=== PATIENT | male | born 1995 | race Two or more races ===

== ENCOUNTER 2025-03-09 03:41 | Inpatient (IN) ==
--- NOTE | 2025-03-09 04:02 | Emergency Department Note ---
Impression & Plan Small bowel obstruction patient will be evaluated by the general surgery team. ED Provider Note NAME: AFSANEH FRAIRE AGE: 29 SEX: Male INFORMANT: Patient ED PROVIDER(S): Sonal Baker DO CHIEF COMPLAINT: shortness of breath PLAN: Disposition: The patient will be evaluated by general surgery MEDICAL DECISION MAKING: This is a 29-year-old male patient who underwent laparoscopy appendectomy on March 06. he describes a normal surgery and postoperative course. He was started on Augmentin. Laboratory studies revealed a white blood cell count of 15.0 and H&H were negative. Lactate was 1.9. D-dimer was significantly elevated at 6219. Patient was medicated with IV Zofran and IV Dilaudid for his pain. He went for CT scan of the abdomen/pelvis along with CT scan of the chest because of the tachypnea and D-dimer elevation. This revealed no evidence of PE but there were significantly dilated loops of small bowel concerning for bowel obstruction. NG tube was placed. Patient is feeling more comfortable at this time. he will be evaluated by the general surgery team. Care/management discussed with: General surgery PA Triage Nursing notes: reviewed and agree with them. Vital Signs: reviewed and unremarkable Additional History obtained from: patient significant other who is at the bedside Differential Diagnosis: perforated bowel, small bowel obstruction, postsurgical complication, colitis Diagnostics, independently interpreted by me: ECG: normal sinus rhythm at a rate of [address] segment elevation or signs of ischemia. There is no ectopy. Cardiac Monitoring: Normal sinus rhythm at a rate of 67 Imaging studies: CTA of the chest: As per Imbro CT scan of the abdomen/pelvis: As per Imbro HPI: 29 year old Male arrives for evaluation of right lower quadrant abdominal pain and shortness of breath. patient underwent laparoscopic appendectomy on March 06 at [facility]. Patient describes a normal post surgical course. He was started on Augmentin upon discharge to home. Patient states he was starting to feel better at home when he suddenly developed moderate abdominal pain and shortness of breath tonight. PAST MEDICAL HISTORY: None, PAST SURGICAL HISTORY: laparoscopic appendectomy SOCIAL HISTORY: patient does not currently smoke. He lives with his significant other. 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 HOME MEDICATIONS: Augmentin ALLERGIES: none VITALS: See Below PHYSICAL EXAMINATION: HEENT: Head - normocephalic and atraumatic Pupils are equal, round, and reactive to light. Extraocular eye muscles are intact, and sclera are anicteric. Nose - moist nasal mucosa without discharge. Mouth - moist buccal mucosa. Oropharynx is nonerythematous and there is no tonsillar exudate or edema noted. Neck: Supple; no JVD, nuchal rigidity, cervical lymphadenopathy, or auscultated bruits. Heart: Regular rate and rhythm. There is a normal S1 and S2 with no murmurs, clicks, or gallops appreciated. Lungs: Clear to auscultation bilaterally with no wheezes, rales, or rhonchi. Abdomen: Soft, Exquisitely tender with even light palpation. There is rigidity, rebound and guarding noted. Extremities: No evidence of cyanosis, clubbing, or edema. There are easily palpable peripheral pulses. Skin: warm and dry with good turgor and no rashes. 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 A complete history and physical was performed. An order was placed for continuous cardiac monitoring. The patient was in a normal sinus rhythm at a rate of 67. Twelve- lead EKG was obtained as described above. The patient was medicated with IV Dilaudid and IV Zofran. He was bolused with normal saline and started on normal saline drip while kept NPO. Patient went for CT scan of the chest and abdomen. CTA of the chest was negative. CT scan of the abdomen showed evidence of multiple dilated loops of bowel concerning for bowel obstruction. I discussed the case with the general surgery team and they will evaluate for further management. Past Med/Surg History Problem List (Updated 03/09/25 @ 07:12 by Jessica Kim DO) Small bowel obstruction, partial Social History Smoking Status: Former smoker Preferred Language: Samoan Feels Safe at Home: Yes Results & Data (ED) Vital Signs Vital Signs - 24 hr 03/09/25 03:48 03/09/25 04:00 03/09/25 04:00 Temperature 36.3 C L Temperature Source Oral Pulse Rate 69 Pulse Rate [Apical] 67 Pulse Rate from SpO2 Sensor Pulse Rhythm Regular Pulse Rhythm [Apical] Regular Pulse Strength Normal Respiratory Rate 18 25 H Respiratory Effort / Characteristics Non-Labored Spontaneous Labored Respiratory Depth Normal Respiratory Pattern Regular Blood Pressure 119/83 Blood Pressure [Left Arm] 118/87 Blood Pressure Mean 95 Blood Pressure Mean [Left Arm] 97 Blood Pressure Position Sitting Blood Pressure Position [Left Arm] Pulse Oximetry 97 99 99 Oxygen Delivery Method Room Air Room Air Room Air Oxygen Flow Rate Sepsis Recent Fever Within 48 Hours No Sepsis New/Unexplained Change in Mental Status N/A Sepsis Action Taken by Nursing No Action Required Oxygen Flow Rate - Titration Pulse Oximetry Post Tiitration 03/09/25 04:13 03/09/25 04:15 03/09/25 04:30 Temperature Temperature Source Pulse Rate 71 Pulse Rate [Apical] 77 69 Pulse Rate from SpO2 Sensor Pulse Rhythm Pulse Rhythm [Apical] Pulse Strength Respiratory Rate 25 H 20 Respiratory Effort / Characteristics Non-Labored Spontaneous Respiratory Depth Normal Respiratory Pattern Regular Blood Pressure Blood Pressure [Left Arm] 124/82 118/76 Blood Pressure Mean Blood Pressure Mean [Left Arm] 96 90 Blood Pressure Position Blood Pressure Position [Left Arm] Semi-fowlers Pulse Oximetry 95 100 Oxygen Delivery Method Room Air Nasal Cannula Oxygen Flow Rate 2 Sepsis Recent Fever Within 48 Hours Sepsis New/Unexplained Change in Mental Status Sepsis Action Taken by Nursing Oxygen Flow Rate - Titration Pulse Oximetry Post Tiitration 03/09/25 04:38 03/09/25 04:45 03/09/25 05:15 Temperature Temperature Source Pulse Rate Pulse Rate [Apical] 74 80 Pulse Rate from SpO2 Sensor Pulse Rhythm Pulse Rhythm [Apical] Pulse Strength Respiratory Rate 22 16 Respiratory Effort / Characteristics Respiratory Depth Respiratory Pattern Blood Pressure Blood Pressure [Left Arm] 125/76 133/74 Blood Pressure Mean Blood Pressure Mean [Left Arm] 92 93 Blood Pressure Position Blood Pressure Position [Left Arm] Pulse Oximetry 80 L 94 100 Oxygen Delivery Method Nasal Cannula Room Air Nasal Cannula Oxygen Flow Rate 0 2 Sepsis Recent Fever Within 48 Hours Sepsis New/Unexplained Change in Mental Status Sepsis Action Taken by Nursing Oxygen Flow Rate - Titration 2 Pulse Oximetry Post Tiitration 100 03/09/25 05:30 03/09/25 05:45 03/09/25 06:00 Temperature Temperature Source Pulse Rate 64 60 60 Pulse Rate [Apical] Pulse Rate from SpO2 Sensor Pulse Rhythm Pulse Rhythm [Apical] Pulse Strength Respiratory Rate 21 18 12 Respiratory Effort / Characteristics Respiratory Depth Respiratory Pattern Blood Pressure 124/73 119/74 120/78 Blood Pressure [Left Arm] Blood Pressure Mean 98 90 97 Blood Pressure Mean [Left Arm] Blood Pressure Position Blood Pressure Position [Left Arm] Pulse Oximetry 100 100 99 Oxygen Delivery Method Oxygen Flow Rate Sepsis Recent Fever Within 48 Hours Sepsis New/Unexplained Change in Mental Status Sepsis Action Taken by Nursing Oxygen Flow Rate - Titration Pulse Oximetry Post Tiitration 03/09/25 06:15 03/09/25 06:45 03/09/25 06:57 Temperature Temperature Source Pulse Rate 62 75 Pulse Rate [Apical] Pulse Rate from SpO2 Sensor 75 Pulse Rhythm Pulse Rhythm [Apical] Pulse Strength Respiratory Rate 14 15 Respiratory Effort / Characteristics Respiratory Depth Respiratory Pattern Blood Pressure 118/74 146/81 H Blood Pressure [Left Arm] Blood Pressure Mean 90 106 Blood Pressure Mean [Left Arm] Blood Pressure Position Blood Pressure Position [Left Arm] Pulse Oximetry 99 96 Oxygen Delivery Method Oxygen Flow Rate Sepsis Recent Fever Within 48 Hours Sepsis New/Unexplained Change in Mental Status Sepsis Action Taken by Nursing Oxygen Flow Rate - Titration Pulse Oximetry Post Tiitration Laboratory Data 03/09/25 04:05 03/09/25 05:01 Lab Results 03/09/25 03/09/25 Range/Units 04:05 05:01 WBC 15.08 H (4.8-10.8) K/ul RBC 5.47 (4.70-6.10) M/uL Hgb 15.8 (14.0-18.0) g/dl Hct 46.9 (42.0-52.0) % MCV 85.7 (80.0-100.0) fL MCH 28.9 (25.0-34.0) pg MCHC 33.7 (32.0-36.0) g/dL RDW Std Deviation 38.1 (36.4-46.3) fL RDW Coeff of Renetta 12.2 (11.5-14.5) % Plt Count 378 (130-400) K/uL MPV 9.7 (9.4-12.4) fL Immature Gran % (Auto) 0.4 % Neut % (Auto) 84.7 % Lymph % (Auto) 7.3 % Runnels % (Auto) 7.2 % Eos % (Auto) 0.1 % Baso % (Auto) 0.3 % Neut # (Auto) 12.78 H (1.40-6.50) K/uL Lymph # (Auto) 1.10 L (1.20-3.40) K/uL Runnels # (Auto) 1.09 H (0.11-0.59) K/uL Eos # (Auto) 0.01 (0.00-0.50) K/uL Baso # (Auto) 0.04 (0.00-0.20) K/uL Immature Gran # (Auto) 0.06 (0.01-0.20) K/uL D-Dimer 6210 H* (0-500) ug/L FEU Sodium 134 L (136-145) mmol/L Potassium TNP 4.3 Chloride 100 (98-107) mmol/L Carbon Dioxide 26 (21-32) mmol/L Anion Gap 8 (3-11) BUN 18 (6-23) mg/dl Creatinine 1.05 (0.6-1.4) mg/dl Est Cr Clr Drug Dosing 92.4 ml/min eGFR 97.93 BUN/Creatinine Ratio 17.1 (10-20) Glucose 111 H (70-99(Fasting)) mg/dl Lactate 1.9 (0.4-2.0) mmol/L Calcium 10.2 (8.6-10.3) mg/dl Magnesium 2.3 (1.7-2.4) mg/dl Total Bilirubin 1.0 (0.2-1.0) mg/dl Direct Bilirubin TNP 0.1 AST TNP 11 L ALT 16 (7-52) U/L Alkaline Phosphatase 55 (34-104) U/L Troponin I High Sens 5.2 (0-20) pg/ml Total Protein 8.3 (6.0-8.3) gm/dl Albumin 4.6 (3.4-5.0) gm/dl Procalcitonin 0.24 (0-0.5) ng/ml Administered Medications Discontinued Medications Hydromorphone HCl (Hydromorphone Inj 0.5 Mg/0.5 Ml Syr) 0.5 mg IV NOW STA Stop: 03/09/25 04:22 Last Admin: 03/09/25 04:28 Dose: 0.5 mg Documented By: JEFRY Sodium Chloride (Nss) 1,000 mls @ 999 mls/hr IV .Q1H1M ONE Stop: 03/09/25 05:21 Last Infusion: 03/09/25 05:40 Dose: Infused Documented By: Admin: 03/09/25 04:28 Dose: 999 mls/hr Documented By: JEFRY Ioversol (Optiray 320 125ml) 119 ml IV ONCE ONE Stop: 03/09/25 05:08 Last Admin: 03/09/25 05:10 Dose: 119 ml Documented By: AMMY Ondansetron HCl (Ondansetron Inj 2 Mg/Ml 2 Ml Vial) 4 mg IV NOW STA Stop: 03/09/25 04:22 Last Admin: 03/09/25 04:28 Dose: 4 mg Documented By: EMB Imaging Data Radiologist's Impression: Chest X-Ray 03/09/25 03:58 EXAM: XR chest 1V portable CLINICAL HISTORY: Sepsis TECHNIQUE: An X-ray image of the chest was obtained in the AP projection. COMPARISON: No prior studies are available for comparison. FINDINGS: Pulmonary Parenchyma: The lungs are clear bilaterally. There is no evidence of consolidation, collapse, or focal opacities. No pulmonary nodules are identified. There is no evidence of pleural effusion or pleural thickening. Heart and Mediastinum: The heart size and shape are normal. There is no mediastinal widening or masses. No hilar or mediastinal lymphadenopathy is present. Bony Thorax: The bony thorax appears intact without fractures or deformities. Soft Tissues: The soft tissues overlying the chest wall are unremarkable. IMPRESSION: Normal chest X-ray. No acute cardiopulmonary abnormalities are identified. Electronically signed by Danis Cabrera 03-09-2025 05:19 AM Abdomen/Pelvis CT 03/09/25 04:21 EXAM: CT abd pelvis IV con only CLINICAL HISTORY: eval for sbo TECHNIQUE: Contiguous axial images were obtained from the level of the diaphragm to the pubic symphysis with intravenous contrast. Coronal and sagittal reconstructions were likewise performed and indicated to increase the sensitivity for detecting clinically relevant pathology. If IV contrast material had not been administered, the likelihood of detecting abnormalities relevant to the patient's condition would have been substantially decreased. The CT scan was performed according to ALARA (as low as reasonably achievable). COMPARISON: None. FINDINGS: The visualized lower chest shows mild bilateral pleural effusion. The liver is normal in size and attenuation. No focal liver lesions are seen. There is no intra- or extrahepatic biliary ductal dilatation. Hepatic vasculature is patent. The gallbladder is present. The spleen, pancreas, and adrenal glands are unremarkable. The kidneys are normal in size and attenuation. There is no hydronephrosis or perinephric fat stranding. No renal calculi or renal masses are identified. The ureters are normal in caliber and no ureteral calculi are seen. The bladder is normal in contour. Pelvic viscera are unremarkable. Evidence of multiple dilated small bowel loops (suggestive of small bowel obstruction) is noted in the mid and lower quadrants of the abdomen (maximum diameter measures approximately 3.2 cm), with moderately thickened and inflamed Ileal loops noted in the right lower quadrant up to the ileocecal junction. Moderate adjacent fat stranding and interbowel adhesion are present. No imaging evidence of appendicitis. Minimal ascites seen. Few air foci seen in left preperitoneal space near deep inguinal ring and in right inguinal region subcutaneous space. Abdominal and pelvic vasculature is patent. No adenopathy or fluid collections are seen. No aggressive appearing osseous lesions are identified. IMPRESSION: 1. Evidence of multiple dilated small bowel loops (suggestive of small bowel obstruction) is noted in the mid and lower quadrants of the abdomen (maximum diameter measures approximately 3.2 cm), with moderately thickened and inflamed ileal loops are noted in the right lower quadrant up to the ileocecal junction. Moderate adjacent fat stranding and interbowel adhesion are present. Possibility of inflammatory etiology/stricture. 2. Few air foci seen in left preperitoneal space near deep inguinal ring and in right inguinal region subcutaneous space. Could be post op. Advised clinical correlation and follow up to rule out bowel perforation. Electronically signed by Danis Cabrera 03-09-2025 06:21 AM Chest CTA 03/09/25 05:00 EXAM: CT angio chest PE protocol CLINICAL HISTORY: PE TECHNIQUE: Contiguous axial images were obtained from the base of the neck through the upper abdomen following intravenous administration of iodinated contrast material. Angiographic images were processed, and 3D MIP images were acquired for interpretation. If IV contrast material had not been administered, the likelihood of detecting abnormalities relevant to the patient's condition would have been substantially decreased. Coronal and sagittal 3D MIPs were likewise performed and indicated to increase the sensitivity of detecting diffuse clinically relevant pathology. The CT scan was performed according to ALARA (as low as reasonably achievable). COMPARISON: None. FINDINGS: Mild bilateral pleural effusions with basal subsegmental collapse of both lower lobes are seen. Adequate contrast bolus without evidence of pulmonary embolism. The central airways are patent. The lungs are clear. The heart, aorta, and pulmonary arteries are of normal size and configuration. There are no appreciable coronary artery or aortic atherosclerotic calcifications. No pericardial effusion is identified. The thyroid is unremarkable. No mediastinal, hilar, or axillary lymphadenopathy is noted. No suspicious lytic or sclerotic osseous lesions are identified. IMPRESSION: 1. No evidence of pulmonary embolism. Mild bilateral pleural effusions with basal subsegmental collapse of both lower lobes are seen. Electronically signed by Danis Cabrera 03-09-2025 06:15 AM Discharge Plan Visit Data Chief Complaint: Abdominal Pain Stated Complaint: BLOATING, SOB, ABD PAIN, APPENDICTOMY 03/06 ED Provider: Sonal Baker Discharge Problem: Small bowel obstruction Condition: Serious Forms Stand Alone Forms: [facility] Referrals Referrals: PCP,NO [Primary Care Provider] -
[2025-03-09 04:19] LABS: Hematocrit (blood only) 46.9 % (42.0-52.0); Hemoglobin 15.8 g/dl (14.0-18.0); Immature Granulocytes # (auto) 0.06 K/uL (0.01-0.20); Immature Granulocytes % (auto) 0.4 %; Mean Corpuscular Hemoglobin 28.9 pg (25.0-34.0); Mean Corpuscular Volume 85.7 fL (80.0-100.0); Platelet Count 378 K/uL (130-400); RDW Standard Deviation 38.1 fL (36.4-46.3); Red Blood Count 5.47 M/uL (4.70-6.10); White Blood Count 15.08 K/ul (4.8-10.8)
[2025-03-09] MEDS: ONDANSETRON INJ 2 MG/ML 2 ML VIAL IV STA (04:28)
[2025-03-09] MEDS: HYDROmorphone INJ 0.5 MG/0.5 ML SYR IV STA ×2 (04:28→19:52)
[2025-03-09] MEDS: SODIUM CHLORIDE 0.9% 1,000 ML IV ONE (04:28)
[2025-03-09 04:54] LABS: Alanine Aminotransferase 16 U/L (7-52); Albumin Level 4.6 gm/dl (3.4-5.0); Alkaline Phosphatase 55 U/L (34-104); Anion Gap 8 (3-11); Bilirubin,Total 1.0 mg/dl (0.2-1.0); Blood Urea Nitrogen 18 mg/dl (6-23); Calcium 10.2 mg/dl (8.6-10.3); Carbon Dioxide 26 mmol/L (21-32); Chloride 100 mmol/L (98-107); Creatinine Clr Calc Pharmacy 92.4 ml/min; Glucose 111 mg/dl (70-99(Fasting)); Magnesium 2.3 mg/dl (1.7-2.4); Sodium 134 mmol/L (136-145); Total Protein 8.3 gm/dl (6.0-8.3)
[2025-03-09] MEDS: OPTIRAY 320 125ml IV ONE (05:10)
--- NOTE | 2025-03-09 05:20 | XRay Report ---
EXAM: XR chest 1V portable CLINICAL HISTORY: Sepsis TECHNIQUE: An X-ray image of the chest was obtained in the AP projection. COMPARISON: No prior studies are available for comparison. FINDINGS: Pulmonary Parenchyma: The lungs are clear bilaterally. There is no evidence of consolidation, collapse, or focal opacities. No pulmonary nodules are identified. There is no evidence of pleural effusion or pleural thickening. Heart and Mediastinum: The heart size and shape are normal. There is no mediastinal widening or masses. No hilar or mediastinal lymphadenopathy is present. Bony Thorax: The bony thorax appears intact without fractures or deformities. Soft Tissues: The soft tissues overlying the chest wall are unremarkable. IMPRESSION: Normal chest X-ray. No acute cardiopulmonary abnormalities are identified. Electronically signed by Danis Cabrera 03-09-2025 05:19 AM
[2025-03-09 05:27] LABS: Potassium 4.3 mmol/L (3.5-5.1)
--- NOTE | 2025-03-09 06:15 | CT Scan Report ---
EXAM: CT angio chest PE protocol CLINICAL HISTORY: PE TECHNIQUE: Contiguous axial images were obtained from the base of the neck through the upper abdomen following intravenous administration of iodinated contrast material. Angiographic images were processed, and 3D MIP images were acquired for interpretation. If IV contrast material had not been administered, the likelihood of detecting abnormalities relevant to the patient's condition would have been substantially decreased. Coronal and sagittal 3D MIPs were likewise performed and indicated to increase the sensitivity of detecting diffuse clinically relevant pathology. The CT scan was performed according to ALARA (as low as reasonably achievable). COMPARISON: None. FINDINGS: Mild bilateral pleural effusions with basal subsegmental collapse of both lower lobes are seen. Adequate contrast bolus without evidence of pulmonary embolism. The central airways are patent. The lungs are clear. The heart, aorta, and pulmonary arteries are of normal size and configuration. There are no appreciable coronary artery or aortic atherosclerotic calcifications. No pericardial effusion is identified. The thyroid is unremarkable. No mediastinal, hilar, or axillary lymphadenopathy is noted. No suspicious lytic or sclerotic osseous lesions are identified. IMPRESSION: 1. No evidence of pulmonary embolism. Mild bilateral pleural effusions with basal subsegmental collapse of both lower lobes are seen. Electronically signed by Danis Cabrera 03-09-2025 06:15 AM
--- NOTE | 2025-03-09 06:22 | CT Scan Report ---
EXAM: CT abd pelvis IV con only CLINICAL HISTORY: eval for sbo TECHNIQUE: Contiguous axial images were obtained from the level of the diaphragm to the pubic symphysis with intravenous contrast. Coronal and sagittal reconstructions were likewise performed and indicated to increase the sensitivity for detecting clinically relevant pathology. If IV contrast material had not been administered, the likelihood of detecting abnormalities relevant to the patient's condition would have been substantially decreased. The CT scan was performed according to ALARA (as low as reasonably achievable). COMPARISON: None. FINDINGS: The visualized lower chest shows mild bilateral pleural effusion. The liver is normal in size and attenuation. No focal liver lesions are seen. There is no intra- or extrahepatic biliary ductal dilatation. Hepatic vasculature is patent. The gallbladder is present. The spleen, pancreas, and adrenal glands are unremarkable. The kidneys are normal in size and attenuation. There is no hydronephrosis or perinephric fat stranding. No renal calculi or renal masses are identified. The ureters are normal in caliber and no ureteral calculi are seen. The bladder is normal in contour. Pelvic viscera are unremarkable. Evidence of multiple dilated small bowel loops (suggestive of small bowel obstruction) is noted in the mid and lower quadrants of the abdomen (maximum diameter measures approximately 3.2 cm), with moderately thickened and inflamed Ileal loops noted in the right lower quadrant up to the ileocecal junction. Moderate adjacent fat stranding and interbowel adhesion are present. No imaging evidence of appendicitis. Minimal ascites seen. Few air foci seen in left preperitoneal space near deep inguinal ring and in right inguinal region subcutaneous space. Abdominal and pelvic vasculature is patent. No adenopathy or fluid collections are seen. No aggressive appearing osseous lesions are identified. IMPRESSION: 1. Evidence of multiple dilated small bowel loops (suggestive of small bowel obstruction) is noted in the mid and lower quadrants of the abdomen (maximum diameter measures approximately 3.2 cm), with moderately thickened and inflamed ileal loops are noted in the right lower quadrant up to the ileocecal junction. Moderate adjacent fat stranding and interbowel adhesion are present. Possibility of inflammatory etiology/stricture. 2. Few air foci seen in left preperitoneal space near deep inguinal ring and in right inguinal region subcutaneous space. Could be post op. Advised clinical correlation and follow up to rule out bowel perforation. Electronically signed by Danis Cabrera 03-09-2025 06:21 AM
--- NOTE | 2025-03-09 06:59 | History & Physical Report ---
Date of Service March 09, 2025 Assessment & Plan (1) Small bowel obstruction, partial: Plan 29M ith no significant PMHx presents to the ED with abdominal pain, an episode vomiting and CT evidence for SBO, questionable inflammation of the TI. WBC 15.08 No acute surgical intervention. Admit to the medical service for continuation of conservative management. NGT placed in the ED. Continue to LIWS NPO, may have a few ice chips sparingly IV Pain control Ambulate as much as possible Initiate chemical DVT ppx Add GI ppx in the form of Protonix. Small amount of blood in the gastric effluent Dr Love is economic analyst as of now and will continue follow up from here History of Present Illness Primary Care Provider: NO PCP 29M with no significant medical problems presented to the ED with abdominal pain and nausea after having vomited at home overnight. He had an appendectomy this past Sunday on 03/06/25 in [facility] where his appendix was found to be perforated. They had been told that his appendix was pinched against his intestine. He has had ongoing abdominal pain since then but developed more significant crampy abdominal pain that started at 11pm last night. Has been burping a lot and has only passed a little gas. Had one small BM. Further contributed history is that he had a pulled pork sandwich a week ago on Sunday that made him feel bloated. By last Sunday am he then started having RLQ abdominal pain which prompted them to visit the ED in [place] where he was diagnosed with acute appendicitis. CT at that time reportedly revealed significantly swollen lymph nodes and an enlarged appendix to 12mm. In the ED he is afebrile and HD stable. Denies any fevers or chills. He has a leukocytosis of 15,000. H/H is WNL. He has an [place]dimer [place] 6210ug/L. A CT A/P was obtained that revealed SB dilation and a loop of terminal ileum with inflammation. Small specs of free air and a small amount of ascites. An NGT has been placed with 100mL of light blood tinged fluid. Past Med/Surg History Problem List (Updated 03/09/25 @ 07:12 by Jessica Kim DO) Small bowel obstruction, partial Social History Smoking Status: Former smoker Preferred Language: German Feels Safe at Home: Yes Review of Systems Constitutional: no fever, no chills, no sweats and no body aches Respiratory: no cough, no chest congestion, no hemoptysis and no sputum production Cardiovascular: no chest pain, no dyspnea, no palpitations and no syncope Gastrointestinal: + bloating, + nausea, + vomiting (x1 ) a nd + cramping Genitourinary: + dysuria; no difficulty urinating, no u rinary frequency or no hematuria Physical Exam Constitutional: + ill appearing and average body habitus ; not in distress and not diaphoretic Respiratory: normal respiratory effort; no respiratory distress, no labored breathing and does not use accessory muscles Cardiovascular: Rate/Rhythm: regular rate; not tachycardic Extremities: no edema Gastrointestinal (Abdomen): Inspection/Auscultation: + abdomen distended Percussion/Palpation: + abdomen tender (moderate TTP right abdomen) and abdomen soft; abdomen not rigid surgical incisions are overall intact. There is mild separation of the infraumbilical incision which contains a small amount of slough. No evidence of infection NGT in place. Blood tinged aspirate. 100mL Results & Data Results & Data Vital Signs (Past 12 Hours) Vital Signs Temp Pulse Pulse Resp BP BP Pulse Ox 03/09/25 06:15 62 14 118/74 99 03/09/25 06:00 60 12 120/78 99 03/09/25 05:45 60 18 119/74 100 03/09/25 05:30 64 21 124/73 100 03/09/25 05:15 80 16 133/74 100 03/09/25 04:45 74 22 125/76 94 03/09/25 04:38 80 L 03/09/25 04:30 69 20 118/76 100 03/09/25 04:15 77 25 H 124/82 95 03/09/25 04:13 71 03/09/25 04:00 67 25 H 118/87 99 03/09/25 04:00 99 03/09/25 03:48 36.3 C L 69 18 119/83 97 O2 Del Method O2 Flow Rate 03/09/25 06:15 03/09/25 06:00 03/09/25 05:45 03/09/25 05:30 03/09/25 05:15 Nasal Cannula 2 03/09/25 04:45 Room Air 03/09/25 04:38 Nasal Cannula 0 03/09/25 04:30 Nasal Cannula 2 03/09/25 04:15 Room Air 03/09/25 04:13 03/09/25 04:00 Room Air 03/09/25 04:00 Room Air 03/09/25 03:48 Room Air PG Care Time/CCT Total # of Minutes Spent Total Time Spent with Patient: Total time spent is greater than 50% in coordination of care (as documented) at patient's floor/unit and/or counseling patient: Coding Level of Care Code 89767 INT INP/OBS CARE MIN Diagnoses Small bowel obstruction, partial K56.600
[2025-03-09] MEDS: SODIUM CHLORIDE 0.9% 500 ML IV SCH (07:30)
--- NOTE | 2025-03-09 07:59 | XRay Report ---
EXAM: XR KUB/Abdomen 1 view CLINICAL HISTORY: NG Tube TECHNIQUE: X-ray images of the abdomen were obtained in supine and upright positions. COMPARISON: No prior studies are available for comparison. FINDINGS: The distal part of the NG tube is coiled upwards, with the tip lying subjacent to the medial margin of the left hemidiaphragm. Gas Pattern: Multiple moderately dilated, centrally placed small bowel loops are seen. No gas is seen under the diaphragm. Soft Tissues: The soft tissues of the abdomen appear normal, without evidence of masses or calcifications. The liver, spleen, and kidneys are of normal size and position. IMPRESSION: 1. The distal end of the NG tube is coiled upwards, with the tip lying just below the medial margin of the left hemidiaphragm. Repositioning is required. 2. Moderately dilated small bowel loops, consistent with small bowel intestinal obstruction. [facility]'s ER was called at at 06:55 AM WOOD HEEL ATTACHER, 03/09/2025, and Lior, Charge Nurse, was informed regarding the presence of Critical Medical Findings in the report. Electronically signed by Sidney Ricardo 03-09-2025 07:59 AM
--- NOTE | 2025-03-09 08:00 | Emergency Department Note ---
ED Visit Note Patient is a 29-year-old male who was seen evaluated in the ER found to have a small bowel obstruction and likely secondary from appendectomy at outside facility. Patient was seen by general surgery who recommended admission to the hospitalist. Patient was signed out to me by Dr. Baker awaiting admission by general surgery. Did contact the hospitalist Dayami for admission to Dr. Carrasco service. .
--- NOTE | 2025-03-09 08:19 | History & Physical Report ---
Date of Service March 09, 2025 Assessment & Plan (1) Small bowel obstruction, partial: Plan This is a 29 y/o male with no significant medical history who presented to the ED overnight with increased abdominal pain, N/V post appendectomy on 03/06. Work- up in the ED showed leukocytosis with WBCs 15.08, normal H&H of 15.8/46.9, sodium 134, creatinine 1.05, lactate 1.9, procalcitonin 0.24. D-dimer was elevated at 6210 so pt underwent CTA chest that was negative for PE but did note mild b/l pleural effusions w/ basal subsegmental collapse of both LL. CT abd/pel (personally reviewed) showed multiple dilated SB loops suggestive of SBO (max diameter 3.2 cm) with moderately thickened and inflamed ileal loops in RLQ up to IC junction, moderate adjacent fat stranding and interbowle adhesion present; no adenopathy noted. Pt was evaluated by surgery in the ED who recommended c onservative management, admission to medical service so we have been consulted for admission. #Partial SBO #Recent Perforated Appendix #POD #3 s/p appendectomy - Admit to med surg - IV Zosyn for now, can de-escalate as condition improves - Continue IVF hydration with LR - Pain control, IV anti-emetics - NGT, diet per surgery - IV PPI - Obtain records from [facility] Pt seen and reviewed with collaborating physician, Dr. Clayton. Plan of care discussed and as outlined above. Code status: full code DVT Prophylaxis: subQ heparin Mariia Grant PA-C History of Present Illness Chief Complaint: small bowel obstruction Primary Care Provider: NO PCP This is a 29 y/o male with no significant medical history who presented to the ED overnight with increased abdominal pain, N/V post appendectomy on 03/06. Pt's girlfriend at the bedside assists with the history as pt is very uncomfortable and deferred to her answers. About a week ago, they went out to eat, after which pt developed some abdominal bloating and discomfort. This lasted a few days before he acutely developed significant RLQ pain, so pt's girlfriend brought him to the ED at [facility] for evaluation. He was found to have appendicitis and was taken for appendectomy. Reportedly, pt's appendix was 12 mm diameter and was perforated with significant associated inflammation. His LN were also noted to be significantly enlarged, more than anticipated per their report. Pt was kept overnight before being discharged two days with a course of Augmentin for five days. He still had abdominal pain but was told that this is to be expected post-operatively. Yesterday, he had started to feel slightly better with less discomfort. He attempted to eat small amount of dinner yesterday - broccoli, ham steak, mashed potatoes. Around 11 pm, he developed worsening abdominal pain, bloating, nausea with one episode of bilious vomiting so his girlfriend ultimately brought him to the ED. Pt had NGT placed in the ED, which has helped with nausea. Denies fevers, chills, sweats. He had one small BM this weekend. Allergies Allergy/AdvReac Type Severity Reaction Status Date / Time No Known Allergies Allergy Unverified 03/09/25 07:32 Home Medications Medication Instructions Recorded Confirmed Type amoxicillin 875 mg-potassium 1 tab PO BID 03/09/25 03/09/25 History clavulanate 125 mg tablet ibuprofen 800 mg tablet 800 mg PO Q8H PRN Pain 03/09/25 03/09/25 History Past Med/Surg History Problem List Small bowel obstruction, partial Medical History Perforated appendix Surgical History S/P appendectomy Family History Denies family history of Crohn's disease Colorectal cancer Ulcerative colitis Social History Smoking Status: Former smoker Hx Alcohol Use: Yes Alcohol Intake Frequency: 2-3 x/Week Hx Substance Use: No Preferred Language: Ukrainian current occupational status: employed Feels Safe at Home: Yes Review of Systems Review of Systems: All systems reviewed & are unremarkable except as noted in Subjective Physical Exam Physical Exam: General: awake, appears uncomfortable HEENT: NGT in place, slightly dry mucus membranes Neck: supple, trachea midline Heart: RRR, no M/G/R Lungs: CTA but diminished at bases bilaterally Abdomen: softly distended, tympanic to percussion, +hypoactive BS, +mild diffuse tenderness, moderate RLQ tenderness Skin: warm, dry, no jaundice Neurologic: Ox3, moving all extremities Extremities: distal pulses intact and equal, no pedal edema Results & Data Results & Data Vital Signs (Past 12 Hours) Vital Signs Temp Pulse Pulse Resp BP BP Pulse Ox 03/09/25 08:06 60 16 98 03/09/25 08:00 133/83 03/09/25 07:45 75 17 96 03/09/25 07:45 125/86 03/09/25 07:30 75 17 96 03/09/25 07:30 124/80 03/09/25 07:27 74 21 96 03/09/25 07:15 121/83 03/09/25 07:12 71 18 97 03/09/25 06:57 75 15 96 03/09/25 06:45 146/81 H 03/09/25 06:15 62 14 118/74 99 03/09/25 06:00 60 12 120/78 99 03/09/25 05:45 60 18 119/74 100 03/09/25 05:30 64 21 124/73 100 03/09/25 05:15 80 16 133/74 100 03/09/25 04:45 74 22 125/76 94 03/09/25 04:38 80 L 03/09/25 04:30 69 20 118/76 100 03/09/25 04:15 77 25 H 124/82 95 03/09/25 04:13 71 03/09/25 04:00 67 25 H 118/87 99 03/09/25 04:00 99 03/09/25 03:48 36.3 C L 69 18 119/83 97 O2 Del Method O2 Flow Rate 03/09/25 08:06 Room Air 03/09/25 08:00 03/09/25 07:45 Room Air 03/09/25 07:45 03/09/25 07:30 03/09/25 07:30 03/09/25 07:27 03/09/25 07:15 03/09/25 07:12 03/09/25 06:57 03/09/25 06:45 03/09/25 06:15 03/09/25 06:00 03/09/25 05:45 03/09/25 05:30 03/09/25 05:15 Nasal Cannula 2 03/09/25 04:45 Room Air 03/09/25 04:38 Nasal Cannula 0 03/09/25 04:30 Nasal Cannula 2 03/09/25 04:15 Room Air 03/09/25 04:13 03/09/25 04:00 Room Air 03/09/25 04:00 Room Air 03/09/25 03:48 Room Air Laboratory Results Lab Results 03/09/25 03/09/25 Range/Units 04:05 05:01 WBC 15.08 H (4.8-10.8) K/ul RBC 5.47 (4.70-6.10) M/uL Hgb 15.8 (14.0-18.0) g/dl Hct 46.9 (42.0-52.0) % MCV 85.7 (80.0-100.0) fL MCH 28.9 (25.0-34.0) pg MCHC 33.7 (32.0-36.0) g/dL RDW Std Deviation 38.1 (36.4-46.3) fL RDW Coeff of Renetta 12.2 (11.5-14.5) % Plt Count 378 (130-400) K/uL MPV 9.7 (9.4-12.4) fL Immature Gran % (Auto) 0.4 % Neut % (Auto) 84.7 % Lymph % (Auto) 7.3 % [place] % (Auto) 7.2 % Eos % (Auto) 0.1 % Baso % (Auto) 0.3 % Neut # (Auto) 12.78 H (1.40-6.50) K/uL Lymph # (Auto) 1.10 L (1.20-3.40) K/uL [place] # (Auto) 1.09 H (0.11-0.59) K/uL Eos # (Auto) 0.01 (0.00-0.50) K/uL Baso # (Auto) 0.04 (0.00-0.20) K/uL Immature Gran # (Auto) 0.06 (0.01-0.20) K/uL D-Dimer 6210 H* (0-500) ug/L FEU Sodium 134 L (136-145) mmol/L Potassium TNP 4.3 Chloride 100 (98-107) mmol/L Carbon Dioxide 26 (21-32) mmol/L Anion Gap 8 (3-11) BUN 18 (6-23) mg/dl Creatinine 1.05 (0.6-1.4) mg/dl Est Cr Clr Drug Dosing 92.4 ml/min eGFR 97.93 BUN/Creatinine Ratio 17.1 (10-20) Glucose 111 H (70-99(Fasting)) mg/dl Lactate 1.9 (0.4-2.0) mmol/L Calcium 10.2 (8.6-10.3) mg/dl Magnesium 2.3 (1.7-2.4) mg/dl Total Bilirubin 1.0 (0.2-1.0) mg/dl Direct Bilirubin TNP 0.1 AST TNP 11 L ALT 16 (7-52) U/L Alkaline Phosphatase 55 (34-104) U/L Troponin I High Sens 5.2 (0-20) pg/ml Total Protein 8.3 (6.0-8.3) gm/dl Albumin 4.6 (3.4-5.0) gm/dl Procalcitonin 0.24 (0-0.5) ng/ml Diagnostic Findings Chest X-Ray 03/09/25 03:58 EXAM: XR chest 1V portable CLINICAL HISTORY: Sepsis TECHNIQUE: An X-ray image of the chest was obtained in the AP projection. COMPARISON: No prior studies are available for comparison. FINDINGS: Pulmonary Parenchyma: The lungs are clear bilaterally. There is no evidence of consolidation, collapse, or focal opacities. No pulmonary nodules are identified. There is no evidence of pleural effusion or pleural thickening. Heart and Mediastinum: The heart size and shape are normal. There is no mediastinal widening or masses. No hilar or mediastinal lymphadenopathy is present. Bony Thorax: The bony thorax appears intact without fractures or deformities. Soft Tissues: The soft tissues overlying the chest wall are unremarkable. IMPRESSION: Normal chest X-ray. No acute cardiopulmonary abnormalities are identified. Electronically signed by Danis Cabrera 03-09-2025 05:19 AM Abdomen/Pelvis CT 03/09/25 04:21 EXAM: CT abd pelvis IV con only CLINICAL HISTORY: eval for sbo TECHNIQUE: Contiguous axial images were obtained from the level of the diaphragm to the pubic symphysis with intravenous contrast. Coronal and sagittal reconstructions were likewise performed and indicated to increase the sensitivity for detecting clinically relevant pathology. If IV contrast material had not been administered, the likelihood of detecting abnormalities relevant to the patient's condition would have been substantially decreased. The CT scan was performed according to ALARA (as low as reasonably achievable). COMPARISON: None. FINDINGS: The visualized lower chest shows mild bilateral pleural effusion. The liver is normal in size and attenuation. No focal liver lesions are seen. There is no intra- or extrahepatic biliary ductal dilatation. Hepatic vasculature is patent. The gallbladder is present. The spleen, pancreas, and adrenal glands are unremarkable. The kidneys are normal in size and attenuation. There is no hydronephrosis or perinephric fat stranding. No renal calculi or renal masses are identified. The ureters are normal in caliber and no ureteral calculi are seen. The bladder is normal in contour. Pelvic viscera are unremarkable. Evidence of multiple dilated small bowel loops (suggestive of small bowel obstruction) is noted in the mid and lower quadrants of the abdomen (maximum diameter measures approximately 3.2 cm), with moderately thickened and inflamed Ileal loops noted in the right lower quadrant up to the ileocecal junction. Moderate adjacent fat stranding and interbowel adhesion are present. No imaging evidence of appendicitis. Minimal ascites seen. Few air foci seen in left preperitoneal space near deep inguinal ring and in right inguinal region subcutaneous space. Abdominal and pelvic vasculature is patent. No adenopathy or fluid collections are seen. No aggressive appearing osseous lesions are identified. IMPRESSION: 1. Evidence of multiple dilated small bowel loops (suggestive of small bowel obstruction) is noted in the mid and lower quadrants of the abdomen (maximum diameter measures approximately 3.2 cm), with moderately thickened and inflamed ileal loops are noted in the right lower quadrant up to the ileocecal junction. Moderate adjacent fat stranding and interbowel adhesion are present. Possibility of inflammatory etiology/stricture. 2. Few air foci seen in left preperitoneal space near deep inguinal ring and in right inguinal region subcutaneous space. Could be post op. Advised clinical correlation and follow up to rule out bowel perforation. Electronically signed by Danis Cabrera 03-09-2025 06:21 AM Chest CTA 03/09/25 05:00 EXAM: CT angio chest PE protocol CLINICAL HISTORY: PE TECHNIQUE: Contiguous axial images were obtained from the base of the neck through the upper abdomen following intravenous administration of iodinated contrast material. Angiographic images were processed, and 3D MIP images were acquired for interpretation. If IV contrast material had not been administered, the likelihood of detecting abnormalities relevant to the patient's condition would have been substantially decreased. Coronal and sagittal 3D MIPs were likewise performed and indicated to increase the sensitivity of detecting diffuse clinically relevant pathology. The CT scan was performed according to ALARA (as low as reasonably achievable). COMPARISON: None. FINDINGS: Mild bilateral pleural effusions with basal subsegmental collapse of both lower lobes are seen. Adequate contrast bolus without evidence of pulmonary embolism. The central airways are patent. The lungs are clear. The heart, aorta, and pulmonary arteries are of normal size and configuration. There are no appreciable coronary artery or aortic atherosclerotic calcifications. No pericardial effusion is identified. The thyroid is unremarkable. No mediastinal, hilar, or axillary lymphadenopathy is noted. No suspicious lytic or sclerotic osseous lesions are identified. IMPRESSION: 1. No evidence of pulmonary embolism. Mild bilateral pleural effusions with basal subsegmental collapse of both lower lobes are seen. Electronically signed by Danis Cabrera 03-09-2025 06:15 AM KUB X-Ray 03/09/25 06:43 EXAM: XR KUB/Abdomen 1 view CLINICAL HISTORY: NG Tube TECHNIQUE: X-ray images of the abdomen were obtained in supine and upright positions. COMPARISON: No prior studies are available for comparison. FINDINGS: The distal part of the NG tube is coiled upwards, with the tip lying subjacent to the medial margin of the left hemidiaphragm. Gas Pattern: Multiple moderately dilated, centrally placed small bowel loops are seen. No gas is seen under the diaphragm. Soft Tissues: The soft tissues of the abdomen appear normal, without evidence of masses or calcifications. The liver, spleen, and kidneys are of normal size and position. IMPRESSION: 1. The distal end of the NG tube is coiled upwards, with the tip lying just below the medial margin of the left hemidiaphragm. Repositioning is required. 2. Moderately dilated small bowel loops, consistent with small bowel intestinal obstruction. [facility]'s ER was called at at 06:55 AM VIBRATOR EQUIPMENT TESTER, 03/09/2025, and Lior, Charge Nurse, was informed regarding the presence of Critical Medical Findings in the report. Electronically signed by Sidney Ricardo 03-09-2025 07:59 AM Medications Administered Sodium Chloride (Nss) 500 mls @ 125 mls/hr IV .Q4H RANDEE Stop: 03/09/25 10:44 Last Admin: 03/09/25 07:30 Dose: 125 mls/hr Documented By: QUECHAN Discontinued Medications Hydromorphone HCl (Hydromorphone Inj 0.5 Mg/0.5 Ml Syr) 0.5 mg IV NOW STA Stop: 03/09/25 04:22 Last Admin: 03/09/25 04:28 Dose: 0.5 mg Documented By: JEFRY Sodium Chloride (Nss) 1,000 mls @ 999 mls/hr IV .Q1H1M ONE Stop: 03/09/25 05:21 Last Infusion: 03/09/25 05:40 Dose: Infused Documented By: Admin: 03/09/25 04:28 Dose: 999 mls/hr Documented By: JEFRY Ioversol (Optiray 320 125ml) 119 ml IV ONCE ONE Stop: 03/09/25 05:08 Last Admin: 03/09/25 05:10 Dose: 119 ml Documented By: AMMY Ondansetron HCl (Ondansetron Inj 2 Mg/Ml 2 Ml Vial) 4 mg IV NOW STA Stop: 03/09/25 04:22 Last Admin: 03/09/25 04:28 Dose: 4 mg Documented By: JEFRY Supervising Physician Co-Signing Physician Notes Patient seen and examined Recently had appendectomy for perforated appendicitis on 03/06 discharged the next day at an outside hospital in [facility] Developed worsening abd pain, nausea and vomiting Exam notable for NGT, hypoactive bowel sounds and mild tenderness Labs notable for leukocytosis 15K, DD 6210, Na 134. Normal lactate CT PE was negative for PE but noted mild b/l pleural effusion with basal subsegmental collapse of both lower lobes CT Ab/P noted findings suggestive of SBO. Few air foci in left peritoneal space, likely post op Continue NGT, NPO, bowel rest Conservative management for now IVF Continue IV zosyn for now and deescalate as appropriate Other plans as detailed in H&P by Linda Grant PA-C
[2025-03-09] MEDS: HYDROmorphone INJ 0.5 MG/0.5 ML SYR IV PRN ×2 (09:09→13:25)
[2025-03-09] MEDS: PIPERACILLIN/TAZOBACTAM 4.5 GM/100 ML BAG IV STA (09:09)
[2025-03-09] MEDS: BENZOCAINE/TETRACAIN/BUTAM 50 APPLN/5 GM CAN EXT ONE (09:09)
[2025-03-09] MEDS: BENZOCAINE/TETRACAIN/BUTAM 50 APPLN/5 GM CAN EXT STA (09:10)
--- NOTE | 2025-03-09 10:06 | XRay Report ---
KUB HISTORY: NGT moved, recheck position COMPARISON STUDY: 03/09/2025 FINDINGS: Nasogastric tube tip is coiled in the distal esophagus or proximal stomach just beyond the GE junction, stable. Stable small bowel distention. No colonic distention seen. IMPRESSION: Stable nasogastric tube coiled in the distal esophagus or proximal stomach at the GE junc tion. ACT 112: Negative or not required by law. The above report was generated using voice recognition software. It may contain grammatical, syntax o r spelling errors. Electronically signed by: Abrahan Vincent M.D. 03/09/2025 10:05 AM
[2025-03-09] MEDS: PANTOprazole 40 MG/10 ML SYR IV SCH (10:20)
--- NOTE | 2025-03-09 10:46 | Electrocardiogram Report ---
Test Reason : Blood Pressure : */* mmHG Vent. Rate : 67 BPM Atrial Rate : 67 BPM P-R Int : 122 ms QRS Dur : 94 ms QT Int : 380 ms P-R-T Axes : 9 70 42 degrees QTcB Int : 401 ms Normal sinus rhythm with sinus arrhythmia Normal ECG No previous ECGs available Confirmed by Jeremy Bazan ([id number]) on 03/09/2025 10:46:40 AM Referred By: REFERRED SELF Confirmed By: Jeremy Bazan
[2025-03-09] MEDS: LACTATED RINGER'S 1,000 ML IV SCH (11:39)
[2025-03-09] MEDS: ONDANSETRON INJ 2 MG/ML 2 ML VIAL IV PRN (13:10)
[2025-03-09] MEDS: PIPERACILLIN/TAZOBACTAM 4.5 GM/100 ML BAG IV SCH (13:27)
[2025-03-09] MEDS: HEPARIN SOD 5,000 UNIT/0.5 ML VIAL SQ SCH (13:47)
--- NOTE | 2025-03-09 22:15 | XRay Report ---
Exam(s): XR KUB EXAM: XR Abdomen, 1 View CLINICAL HISTORY: Reason for exam: ng tube. TECHNIQUE: Frontal supine view of the abdomen/pelvis. COMPARISON: 03/09/2025 at 0945 hours FINDINGS: Gastrointestinal tract: Dilated small bowel may reflect small-bowel obstruction. Bones/joints: No acute fracture. No dislocation. Tubes, lines and devices: Repositioned enteric tube with tip and side port now in the stomach. IMPRESSION: 1. Repositioned enteric tube with tip and side port now in the stomach. 2. Dilated small bowel may reflect small-bowel obstruction. Electronically signed by: Julia Reza M.D. 03/09/25 22:14 PM
[2025-03-09 23:42] LABS: Appearance Urine Clear (Clear); Bacteria Urine Automated None Seen (None Seen); Cast Urine Automated 0-2 /lpf (0-2); Epithelial Cell Urine Auto 0-2 /hpf (0-2); Glucose Urine UA Negative (Negative); RBC Urine Automated 0-2 /hpf (0-2); WBC Urine Automated 0-5 /hpf (0-5)
[2025-03-10 08:59] LABS: Hematocrit (blood only) 40.7 % (42.0-52.0); Hemoglobin 13.7 g/dl (14.0-18.0); Immature Granulocytes # (auto) 0.03 K/uL (0.01-0.20); Immature Granulocytes % (auto) 0.3 %; Mean Corpuscular Hemoglobin 28.4 pg (25.0-34.0); Mean Corpuscular Volume 84.4 fL (80.0-100.0); Platelet Count 352 K/uL (130-400); RDW Standard Deviation 37.5 fL (36.4-46.3); Red Blood Count 4.82 M/uL (4.70-6.10); White Blood Count 9.89 K/ul (4.8-10.8)
[2025-03-10 09:18] LABS: Anion Gap 9.0 (3-11); Blood Urea Nitrogen 16.0 mg/dl (6-23); Calcium 8.8 mg/dl (8.6-10.3); Carbon Dioxide 26.0 mmol/L (21-32); Chloride 103.0 mmol/L (98-107); Creatinine Clr Calc Pharmacy 109.0 ml/min; Glucose 101.0 mg/dl (70-99(Fasting)); Potassium 3.8 mmol/L (3.5-5.1); Sodium 138.0 mmol/L (136-145)
--- NOTE | 2025-03-10 10:34 | Surgery Progress Note ---
Date of Service March 10, 2025 Assessment & Plan (1) Small bowel obstruction, partial: Plan: pt with history of lap appy on 03/06 at OSH here w/ abdominal pain and imaging concerning for at least partial SBO pt is clinically feeling mildly better today. he has started to pass some flatus NGT 250cc documented. KUB ordered and pending, from review still looks like some dilated loops of small bowel but with some air in the colon would continue NGT and bowel rest for today we will continue to follow, but no plans for any surgical intervention indicated at this time continue to encourage OOB ambulating, may clamp NGT to ambulate the [facility] Admission and Anticipated Discharge Date Admission Date: March 09, 2025 Subjective Patient reports feeling a little bit better. Starting to pass a small amount of flatus Physical Exam Physical Exam: sleepy, but awake and alert Respiratory: normal respiratory effort Gastrointestinal (Abdomen): Inspection/Auscultation: + abdomen distended (some bloating noted) and + abdominal surgical incision (c/d/i with dermabond) Percussion/Palpation: abdomen soft Results & Data Vital Signs (Past 12 Hours) Vital Signs Temp Pulse Resp BP Pulse Ox O2 Del Method 03/10/25 07:09 98.4 F 80 16 117/83 97 Room Air 03/10/25 00:04 98.1 F 77 18 131/86 94 Room Air PG Care Time/CCT Total # of Minutes Spent Total Time Spent with Patient: Total time spent is greater than 50% in coordination of care (as documented) at patient's floor/unit and/or counseling patient: Coding Level of Care Code 07989 SUB INP/OBS CARE 07/05MIN Diagnoses Small bowel obstruction, partial K56.600
--- NOTE | 2025-03-10 10:47 | XRay Report ---
KUB HISTORY: eval sbo COMPARISON STUDY: 03/09/2025 FINDINGS: Nasogastric tube tip is in the proximal stomach with the sidehole at the GE junction. There is diffuse small bowel distention measuring up to 4.5 cm diameter, stable. No colonic distention see n. No gross free air. IMPRESSION: 1. Stable diffuse small bowel distention. 2. Nasogastric tube tip is in the proximal stomach with the sidehole near the GE junction. ACT 112: Negative or not required by law. The above report was generated using voice recognition software. It may contain grammatical, syntax o r spelling errors. Electronically signed by: Abrahan Vincent M.D. 03/10/2025 10:46 AM
--- NOTE | 2025-03-10 11:53 | Hospitalist Progress Note ---
Date of Service March 10, 2025 Assessment & Plan (1) Small bowel obstruction, partial: Plan This is a 29 y/o male with no significant medical history who presented to the ED overnight with increased abdominal pain, N/V post appendectomy on 03/06. Work- up in the ED showed leukocytosis with WBCs 15.08, normal H&H of 15.8/46.9, sodium 134, creatinine 1.05, lactate 1.9, procalcitonin 0.24. D-dimer was elevated at 6210 so pt underwent CTA chest that was negative for PE but did note mild b/l pleural effusions w/ basal subsegmental collapse of both LL. CT abd/pel (personally reviewed) showed multiple dilated SB loops suggestive of SBO (max diameter 3.2 cm) with moderately thickened and inflamed ileal loops in RLQ up to IC junction, moderate adjacent fat stranding and interbowle adhesion present; no adenopathy noted. Pt was evaluated by surgery in the ED who recommended c onservative management, admission to medical service so we have been consulted for admission. #Partial SBO-secondary to adhesions #Recent Perforated Appendix on 03/06/2025 - Admit to med surg - IV Zosyn for now, can de-escalate as condition improves - Continue IVF hydration with LR - Pain control, IV anti-emetics - NGT, diet per surgery - IV PPI - Appreciate surgery input and recommendation Reasonable grayness through the NG tube Has been passing gas but bowel is not moved and the abdomen remains distended KUB showed persistence of SBO and will continue current management Code status: full code DVT Prophylaxis: subQ heparin Admission and Anticipated Discharge Date Admission Date: March 09, 2025 Subjective 03/10/2025 The patient was seen and examined in medical floor He has been complaining of persistent abdominal distention and discomfort Has been passing gas but no bowel movement NG tube is draining adequate amounts of fluid Review of Systems Review of Systems: All systems reviewed and unremarkable except as noted below Physical Exam Physical Exam: Lying in bed with moderate distress due to abdominal distention and discomfort with status post NGT Constitutional: + ill appearing and average body habitus Eyes: PERRL, conjunctivae normal, anicteric sclerae ENMT: external ear and nose normal, oropharynx normal Neck: trachea midline, no thyromegaly Respiratory: no respiratory distress Auscultation: lungs clear to auscultation bilaterally Cardiovascular: Rate/Rhythm: regular rate and regular rhythm; not tachycardic Heart Sounds: normal S1 and normal S2; no murmur Extremities: no edema Gastrointestinal (Abdomen): Inspection/Auscultation: + abdomen distended; + abnormal bowel sounds (Decreased and tingling) Percussion/Palpation: + abdomen tender (Tender all over); + abdomen not soft (Firm) Musculoskeletal: No acute arthritis involving any of the joint Neurologic: normal touch/pain/proprioception and moves all extremities; no focal motor deficits Psychiatric: A+Ox3, euthymic affect Lymphatic: no cervical or axillary lymphadenopathy Results & Data Results & Data Vital Signs (Past 12 Hours) Vital Signs Temp Pulse Resp BP Pulse Ox O2 Del Method 03/10/25 07:09 36.9 C 80 16 117/83 97 Room Air 03/10/25 00:04 36.7 C 77 18 131/86 94 Room Air Laboratory Results Short CBC 03/10/25 Range/Units 08:20 WBC 9.89 (4.8-10.8) K/ul Hgb 13.7 L (14.0-18.0) g/dl Hct 40.7 L (42.0-52.0) % Plt Count 352 (130-400) K/uL BMP 03/10/25 08:20 Sodium 138 Potassium 3.8 Chloride 103 Carbon Dioxide 26 BUN 16 Creatinine 0.89 Glucose 101 H Calcium 8.8 Urine 03/09/25 Range/Units 23:00 Urine Color Yellow Urine Appearance Clear (Clear) Urine pH 5.5 (4.5-7.5) Ur Specific [place] > 1.045 H (1.000-1.030) Urine Protein 1+ H (Negative) Urine Glucose (UA) Negative (Negative) Medications Administered Current Inpatient Medications Heparin Sodium (Porcine) (Heparin Sod 5,000 Unit/0.5 Ml Vial) 5,000 units SQ Q8 RANDEE Stop: 04/08/25 13:59 Last Admin: 03/10/25 05:32 Dose: 5,000 units Hydromorphone HCl (Hydromorphone Inj 0.5 Mg/0.5 Ml Syr) 0.5 mg IV Q4H PRN PRN Reason: Mod-Sev Pain (Scale 4-10) Stop: 03/23/25 08:41 Last Admin: 03/09/25 16:25 Dose: 0.5 mg Piperacillin Sod/Tazobactam Sod (Zosyn) 4.5 gm in 100 mls @ 25 mls/hr IV Q8H RANDEE; Protocol Stop: 03/19/25 13:59 Last Infusion: 03/10/25 09:29 Dose: Infused Pantoprazole Sodium (Protonix) 40 mg in 10 mls @ 5 mls/min IV DAILY RANDEE Stop: 04/08/25 09:14 Last Admin: 03/10/25 08:06 Dose: 5 mls/min Lactated Ringer's (Lr) 1,000 mls @ 100 mls/hr IV .Q10H RANDEE Stop: 03/12/25 11:14 Last Admin: 03/10/25 07:15 Dose: 100 mls/hr Ondansetron HCl (Ondansetron Inj 2 Mg/Ml 2 Ml Vial) 4 mg IV Q6H PRN PRN Reason: Nausea And Vomiting Stop: 04/08/25 08:41 Last Admin: 03/09/25 16:25 Dose: 4 mg
[2025-03-11 07:43] LABS: Hematocrit (blood only) 38.6 % (42.0-52.0); Hemoglobin 13.5 g/dl (14.0-18.0); Immature Granulocytes # (auto) 0.03 K/uL (0.01-0.20); Immature Granulocytes % (auto) 0.4 %; Mean Corpuscular Hemoglobin 29.2 pg (25.0-34.0); Mean Corpuscular Volume 83.5 fL (80.0-100.0); Platelet Count 337 K/uL (130-400); RDW Standard Deviation 36.7 fL (36.4-46.3); Red Blood Count 4.62 M/uL (4.70-6.10); White Blood Count 8.17 K/ul (4.8-10.8)
[2025-03-11 07:55] LABS: Anion Gap 7.0 (3-11); Blood Urea Nitrogen 15.0 mg/dl (6-23); Calcium 8.5 mg/dl (8.6-10.3); Carbon Dioxide 28.0 mmol/L (21-32); Chloride 102.0 mmol/L (98-107); Creatinine Clr Calc Pharmacy 107.8 ml/min; Glucose 88.0 mg/dl (70-99(Fasting)); Potassium 3.6 mmol/L (3.5-5.1); Sodium 137.0 mmol/L (136-145)
--- NOTE | 2025-03-11 10:55 | Surgery Progress Note ---
Date of Service March 11, 2025 Assessment & Plan (1) Small bowel obstruction, partial: Plan: resolving remove NG begin diet slowly ambulate Admission and Anticipated Discharge Date Admission Date: March 09, 2025 Subjective passing flatus and small BMs ambulating no pain Review of Systems Constitutional: no fever and no chills Respiratory: no dyspnea Cardiovascular: no chest pain Gastrointestinal: no abdominal pain, no nausea and no vomiting Neurologic: no localized weakness Psychiatric: no behavioral changes Physical Exam Constitutional: WD/WN, vitals as above Respiratory: normal respiratory effort Cardiovascular: RRR, no murmur, no edema Gastrointestinal (Abdomen): Inspection/Auscultation: normal bowel sounds; abdomen not distended Percussion/Palpation: abdomen soft; abdomen nontender Musculoskeletal: Head/Neck/Chest: normocephalic and head atraumatic Skin: no rashes, warm and dry Results & Data Vital Signs (Past 12 Hours) Vital Signs Temp Pulse Resp BP Pulse Ox O2 Del Method 03/11/25 07:50 36.3 C L 70 16 119/82 97 Room Air 03/10/25 23:00 36.6 C 70 18 134/81 96 Room Air
[2025-03-11] MEDS ORDERED: KETOROLAC 30 MG/ML VIAL IV PRN (14:15)
[2025-03-11] MEDS ORDERED: HYDROmorphone INJ 1 MG/ML SYRINGE IV PRN (14:17)
[2025-03-11] MEDS: ACETAMINOPHEN 1,000 MG/100 ML VIAL IV SCH (14:55)
[2025-03-11] MEDS: LORazepam Inj 1 MG in SYRINGE 0.5 ML IV STA (14:59)
[2025-03-11] MEDS: PROMETHAZINE 12.5 MG/50.5 ML BAG IV PRN (15:31)
[2025-03-11] MEDS: LIDOCAINE 2% JELLY 5 ML TUBE EXT PRN (15:53)
[2025-03-11] MEDS: HYDROmorphone INJ 0.5 MG/0.5 ML SYR IV PRN (15:58)
--- NOTE | 2025-03-11 16:48 | Hospitalist Progress Note ---
Date of Service March 11, 2025 Assessment & Plan (1) Small bowel obstruction, partial: Plan This is a 29 y/o male with no significant medical history who presented to the ED overnight with increased abdominal pain, N/V post appendectomy on 03/06. Work- up in the ED showed leukocytosis with WBCs 15.08, normal H&H of 15.8/46.9, sodium 134, creatinine 1.05, lactate 1.9, procalcitonin 0.24. D-dimer was elevated at 6210 so pt underwent CTA chest that was negative for PE but did note mild b/l pleural effusions w/ basal subsegmental collapse of both LL. CT abd/pel (personally reviewed) showed multiple dilated SB loops suggestive of SBO (max diameter 3.2 cm) with moderately thickened and inflamed ileal loops in RLQ up to IC junction, moderate adjacent fat stranding and interbowle adhesion present; no adenopathy noted. Pt was evaluated by surgery in the ED who recommended cons ervative management, admission to medical service so we have been consulted for admission. Partial SBO-secondary to adhesions Recent Perforated Appendix on 03/06/2025 --CT ABD:Evidence of multiple dilated small bowel loops (suggestive of small bowel obstruction) is noted in the mid and lower quadrants of the abdomen (maximum diameter measures approximately 3.2 cm), with moderately thickened and inflamed ileal loops are noted in the right lower quadrant up to the ileocecal junction. Moderate adjacent fat stranding and interbowel adhesion are present. Possibility of inflammatory etiology/stricture. Few air foci seen in left preperitoneal space near deep inguinal ring and in right inguinal region subcutaneous space. Could be post op. Advised clinical correlation and follow up to rule out bowel perforation. -- Blood cultures negative to date NG tube discontinued Continue gentle IV fluids Pain control as needed Replace electrolytes as needed Encouraged to ambulate Plan for small bowel follow-through via NG tube tomorrow Continue bowel rest Empirically on IV Zosyn Elevated D dimer Likely due to recent surgery Saturating well on room air Check Venous doppler DVT Px: Heparin SQ CODE STATUS Full code Admission and Anticipated Discharge Date Admission Date: March 09, 2025 Subjective Patient is seen and examined at bedside Had small BM yesterday + Burping, abdominal discomfort today Denies any chest pain, dyspnea NG tube discontinued Review of Systems Review of Systems: All systems reviewed & are unremarkable except as noted in Subjective Physical Exam Physical Exam: Physical Exam: Vitals signs as noted above General Appearance: Thin, frail, no apparent distress Head: normocephalic, Atraumatic Eyes: normal inspection, EOMI Neck: supple, Trachea midline Respiratory/Chest: Normal breath sounds, CTA, No accessory muscle use Cardiovascular: S1, S2, No murmur Abdomen/GI: Firm, distended, mild tender, bowel sounds present,+ laparoscopic surgical scars Extremities/Musculoskeletal:normal inspection, no edema Neurologic/Psych:AAOX3, grossly no focal neurological deficits Skin: normal color, warm Results & Data Results & Data Vital Signs (Past 12 Hours) Vital Signs Temp Pulse Resp BP Pulse Ox O2 Del Method 03/11/25 15:06 36.8 C 83 16 127/76 98 Room Air 03/11/25 07:50 36.3 C L 70 16 119/82 97 Room Air Laboratory Results Short CBC 03/11/25 Range/Units 07:01 WBC 8.17 (4.8-10.8) K/ul Hgb 13.5 L (14.0-18.0) g/dl Hct 38.6 L (42.0-52.0) % Plt Count 337 (130-400) K/uL BMP 03/11/25 07:01 Sodium 137 Potassium 3.6 Chloride 102 Carbon Dioxide 28 BUN 15 Creatinine 0.90 Glucose 88 Calcium 8.5 L
--- NOTE | 2025-03-11 23:25 | Ultrasound Report ---
Exam(s): US VENOUS BILATERAL LOWER EXTREMITIES EXAM: US Duplex Bilateral Lower Extremities Veins CLINICAL HISTORY: Reason for exam: elevated d dimer. TECHNIQUE: Real-time duplex ultrasound scan of the bilateral lower extremity veins integrating B-mode two-dimensional vascular structure, Doppler spectral analysis, color flow Doppler imaging and compression. COMPARISON: None. FINDINGS: Veins: No DVT in the visualized bilateral lower extremity veins, including the common femoral, superficial femoral, proximal deep femoral and popliteal veins. The veins demonstrate normal color flow, are normally compressible, with normal phasic flow and/or augmentation response. Soft tissues: No popliteal cyst. IMPRESSION: 1. No DVT bilateral lower extremity veins. Electronically signed by: Margaret Steiner M.D. 03/11/25 23:24 PM
[2025-03-12 07:27] LABS: Hematocrit (blood only) 35.6 % (42.0-52.0); Hemoglobin 12.6 g/dl (14.0-18.0); Mean Corpuscular Hemoglobin 29.7 pg (25.0-34.0); Mean Corpuscular Volume 84.0 fL (80.0-100.0); Platelet Count 330 K/uL (130-400); RDW Standard Deviation 36.4 fL (36.4-46.3); Red Blood Count 4.24 M/uL (4.70-6.10); White Blood Count 9.98 K/ul (4.8-10.8)
[2025-03-12 07:45] LABS: Anion Gap 11.0 (3-11); Blood Urea Nitrogen 12.0 mg/dl (6-23); Calcium 8.5 mg/dl (8.6-10.3); Carbon Dioxide 26.0 mmol/L (21-32); Chloride 99.0 mmol/L (98-107); Creatinine Clr Calc Pharmacy 110.2 ml/min; Glucose 83.0 mg/dl (70-99(Fasting)); Magnesium 1.9 mg/dl (1.7-2.4); Potassium 3.5 mmol/L (3.5-5.1); Sodium 136.0 mmol/L (136-145)
--- NOTE | 2025-03-12 09:31 | Surgery Progress Note ---
Date of Service March 12, 2025 Assessment & Plan (1) Small bowel obstruction, partial: (2) S/P laparoscopic appendectomy: Plan: POD # 6 s/p laparoscopic appendectomy at OSH for perforated appendicitis avss moderate abdominal distention 400 cc out of NGT since replacement yesterday +Flatus Plan: Await SBFT study today Continue IV fluids Continue NGT to LIS AMbulate as much as possible Pain management and antiemetics as needed May need to consider IV Steroids pending SBFT results? Discussed with Dr. Love who agrees with above Admission and Anticipated Discharge Date Admission Date: March 09, 2025 Subjective feeling better since NGT was placed, no vomiting since placement still feeling bloated but slightly less passed good amount of flatus this morning minimal abdominal pain ambulating hallway Physical Exam Constitutional: WD/WN, vitals as above cooperative; no acute distress, not ill appearing, + uncomfortable and not in distress Respiratory: normal respiratory effort, lungs clear to auscultation Cardiovascular: RRR, no murmur, no edema Gastrointestinal (Abdomen): Inspection/Auscultation: + abdomen distended (moderate distention) and + abdominal surgical incision (c/d/i with dermabond) Percussion/Palpation: + abdomen tender (mild in lower abdomen), abdomen soft and + tympanic to percussion; no guarding and abdomen not rigid NGT with bilious output Skin: no rashes, warm and dry Psychiatric: Orientation: alert and oriented x 3 Affect: + anxious affect and + flat affect Results & Data Vital Signs (Past 12 Hours) Vital Signs Temp Pulse Resp BP Pulse Ox O2 Del Method 03/12/25 07:59 36.9 C 88 16 128/74 96 Room Air 03/11/25 23:25 37.0 C 74 16 116/72 97 Room Air 03/11/25 23:00 Room Air Laboratory Results 03/12/25 Range/Units 06:58 WBC 9.98 (4.8-10.8) K/ul RBC 4.24 L (4.70-6.10) M/uL Hgb 12.6 L (14.0-18.0) g/dl Hct 35.6 L (42.0-52.0) % MCV 84.0 (80.0-100.0) fL MCH 29.7 (25.0-34.0) pg MCHC 35.4 (32.0-36.0) g/dL RDW Std Deviation 36.4 (36.4-46.3) fL RDW Coeff of Renetta 11.9 (11.5-14.5) % Plt Count 330 (130-400) K/uL MPV 9.3 L (9.4-12.4) fL Sodium 136 (136-145) mmol/L Potassium 3.5 (3.5-5.1) mmol/L Chloride 99 (98-107) mmol/L Carbon Dioxide 26 (21-32) mmol/L Anion Gap 11 (3-11) BUN 12 (6-23) mg/dl Creatinine 0.88 (0.6-1.4) mg/dl Est Cr Clr Drug Dosing 110.2 ml/min eGFR 118.63 BUN/Creatinine Ratio 13.6 (10-20) Glucose 83 (70-99(Fasting)) mg/dl Calcium 8.5 L (8.6-10.3) mg/dl Magnesium 1.9 (1.7-2.4) mg/dl
--- NOTE | 2025-03-12 14:53 | Fluoroscopy Report ---
FL small bowel follow through CLINICAL HISTORY: eval SBO, POD #5 lap appy outside hospital. TECHNIQUE: Oral barium was administered to the patient and serial radiographs of the abdomen were pe rformed. COMPARISON STUDY: 03/09/2025 CT and x-ray of 03/10/2025 FINDINGS: Nasogastric tube tip is in the proximal stomach with the sidehole just beyond the GE juncti on on the scalp treatment specialist view. There is small bowel distention measuring up to 5 cm on the scalp treatment specialist view. No colo mell distention seen. Contrast was given through the nasogastric tube. There is persistent small bowel distention measurin g up to 5 cm on the 3 hour film. Contrast has progressed to the region of the distal jejunum, not sig nificantly progressed since the 60 minute film. IMPRESSION: 1. Findings consistent with small bowel obstruction. 2. Recommend KUB in the morning to see if the contrast progresses. ACT 112: Negative or not required by law. The above report was generated using voice recognition software. It may contain grammatical, syntax o r spelling errors. Electronically signed by: Abrahan Vincent M.D. 03/12/2025 2:48 PM
--- NOTE | 2025-03-12 15:23 | Hospitalist Progress Note ---
Date of Service March 12, 2025 Assessment & Plan (1) Small bowel obstruction, partial: Plan This is a 29 y/o male with no significant medical history who presented to the ED overnight with increased abdominal pain, N/V post appendectomy on 03/06. Work- up in the ED showed leukocytosis with WBCs 15.08, normal H&H of 15.8/46.9, sodium 134, creatinine 1.05, lactate 1.9, procalcitonin 0.24. D-dimer was elevated at 6210 so pt underwent CTA chest that was negative for PE but did note mild b/l pleural effusions w/ basal subsegmental collapse of both LL. CT abd/pel (personally reviewed) showed multiple dilated SB loops suggestive of SBO (max diameter 3.2 cm) with moderately thickened and inflamed ileal loops in RLQ up to IC junction, moderate adjacent fat stranding and interbowle adhesion present; no adenopathy noted. Pt was evaluated by surgery in the ED who recommended cons ervative management, admission to medical service so we have been consulted for admission. Partial SBO-secondary to adhesions Recent Perforated Appendix on 03/06/2025 --CT ABD:Evidence of multiple dilated small bowel loops (suggestive of small bowel obstruction) is noted in the mid and lower quadrants of the abdomen (maximum diameter measures approximately 3.2 cm), with moderately thickened and inflamed ileal loops are noted in the right lower quadrant up to the ileocecal junction. Moderate adjacent fat stranding and interbowel adhesion are present. Possibility of inflammatory etiology/stricture. Few air foci seen in left preperitoneal space near deep inguinal ring and in right inguinal region subcutaneous space. Could be post op. Advised clinical correlation and follow up to rule out bowel perforation. -- Small bowel follow-through:Findings consistent with small bowel obstruction. -- Blood cultures negative to date Continue NG tube Continue gentle IV fluids Pain control as needed Replace electrolytes as needed Encouraged to ambulate Continue bowel rest Empirically on IV Zosyn Surgery following Elevated D dimer Likely due to recent surgery Saturating well on room air Venous doppler:No DVT bilateral lower extremity veins. DVT Px: Heparin SQ CODE STATUS Full code Admission and Anticipated Discharge Date Admission Date: March 09, 2025 Subjective Patient is seen and examined at bedside Abdominal pain slightly better today Flatus+, no bowel movement today NG tube reinserted yesterday Had SBFT this morning Denies any chest pain, dyspnea Review of Systems Review of Systems: All systems reviewed & are unremarkable except as noted in Subjective Physical Exam Physical Exam: Physical Exam: Vitals signs as noted above General Appearance: Thin, frail, no apparent distress Head: normocephalic, Atraumatic Eyes: normal inspection, EOMI Neck: supple, Trachea midline Respiratory/Chest: Normal breath sounds, CTA, No accessory muscle use Cardiovascular: S1, S2, No murmur Abdomen/GI: Firm, distended, mild tender, decreased bowel sounds,+ laparoscopic surgical scars Extremities/Musculoskeletal:normal inspection, no edema Neurologic/Psych:AAOX3, grossly no focal neurological deficits Skin: normal color, warm Results & Data Results & Data Vital Signs (Past 12 Hours) Vital Signs Temp Pulse Resp BP Pulse Ox O2 Del Method 03/12/25 15:03 36.6 C 72 16 129/80 97 Room Air 03/12/25 07:59 36.9 C 88 16 128/74 96 Room Air Laboratory Results Short CBC 03/12/25 Range/Units 06:58 WBC 9.98 (4.8-10.8) K/ul Hgb 12.6 L (14.0-18.0) g/dl Hct 35.6 L (42.0-52.0) % Plt Count 330 (130-400) K/uL BMP 03/12/25 06:58 Sodium 136 Potassium 3.5 Chloride 99 Carbon Dioxide 26 BUN 12 Creatinine 0.88 Glucose 83 Calcium 8.5 L
[2025-03-12] MEDS: NSS + 20MEQ KCL 20 MEQ/1,000 ML BAG IV SCH (16:28)
[2025-03-13 07:54] LABS: Hematocrit (blood only) 36.8 % (42.0-52.0); Hemoglobin 12.6 g/dl (14.0-18.0); Mean Corpuscular Hemoglobin 28.7 pg (25.0-34.0); Mean Corpuscular Volume 83.8 fL (80.0-100.0); Platelet Count 327 K/uL (130-400); RDW Standard Deviation 35.9 fL (36.4-46.3); Red Blood Count 4.39 M/uL (4.70-6.10); White Blood Count 8.03 K/ul (4.8-10.8)
[2025-03-13 08:11] LABS: Anion Gap 10.0 (3-11); Blood Urea Nitrogen 10.0 mg/dl (6-23); Calcium 8.6 mg/dl (8.6-10.3); Carbon Dioxide 25.0 mmol/L (21-32); Chloride 100.0 mmol/L (98-107); Creatinine Clr Calc Pharmacy 121.3 ml/min; Glucose 78.0 mg/dl (70-99(Fasting)); Potassium 3.7 mmol/L (3.5-5.1); Sodium 135.0 mmol/L (136-145)
--- NOTE | 2025-03-13 08:36 | XRay Report ---
KUB HISTORY: f/u SBFT, progression of contrast COMPARISON STUDY: 03/12/2025 FINDINGS: Nasogastric tube tip is in the proximal stomach with the sidehole near the GE junction. Con trast has progressed to the colon and the rectum. There is residual contrast in the small bowel with multiple dilated small bowel loops measuring up to 5 cm, mildly improved. IMPRESSION: 1. Contrast has progressed to the rectum. 2. Persistent small bowel distention, mildly improved. ACT 112: Negative or not required by law. The above report was generated using voice recognition software. It may contain grammatical, syntax o r spelling errors. Electronically signed by: Arbahan Vincent M.D. 03/13/2025 8:34 AM
--- NOTE | 2025-03-13 09:25 | Surgery Progress Note ---
Date of Service March 13, 2025 Assessment & Plan (1) Small bowel obstruction, partial: (2) S/P laparoscopic appendectomy: Plan: POD # 7 s/p laparoscopic appendectomy at OSH for perforated appendicitis avss moderate abdominal distention- improving SBFT study with contrast in rectum, residual small bowel distention at 5 cm but improved 350 cc out of NGT last shift abdomen less distended and softer today + liquid bowel movements (mostly contrast) and some small stool, + Flatus Plan: Clamp NGT for 4 hours, check residual, hopefully can remove if patient having no pain, increase distention or nausea and having bowel function while tube being clamped Continue IV fluids AMbulate as much as possible Pain management and antiemetics as needed, limit narcotics If keeping NGT, may need to consider PPN [facility] surgery sports information director this weekend Discussed with Dr. Love who agrees with above Admission and Anticipated Discharge Date Admission Date: March 09, 2025 Subjective feeling better, abdomen feels less bloated this morning having liquid bowel movements last night and this morning, a little bit of stool mostly contrast no n,v passing a little flatus no chest pain/shortness of breath no fevers or chills Review of Systems Review of Systems: All systems reviewed & are unremarkable except as noted in HPI & below Physical Exam Constitutional: WD/WN, vitals as above cooperative and comfortable; no acute distress and not ill appearing Respiratory: normal respiratory effort; no respiratory distress, no labored breathing and no retractions Gastrointestinal (Abdomen): Inspection/Auscultation: abdomen normal to inspection, + abdomen distended (mild distention, improved) and + abdominal surgical incision (c/d/i with dermabond) Percussion/Palpation: abdomen soft; abdomen nontender, no guarding and abdomen not rigid Skin: no rashes, warm and dry Psychiatric: Orientation: alert and oriented x 3 Results & Data Vital Signs (Past 12 Hours) Vital Signs Temp Pulse Resp BP Pulse Ox O2 Del Method 03/13/25 07:02 36.6 C 71 16 124/73 98 Room Air 03/12/25 23:08 36.8 C 74 12 123/78 97 Room Air Laboratory Results 03/13/25 Range/Units 07:19 WBC 8.03 (4.8-10.8) K/ul RBC 4.39 L (4.70-6.10) M/uL Hgb 12.6 L (14.0-18.0) g/dl Hct 36.8 L (42.0-52.0) % MCV 83.8 (80.0-100.0) fL MCH 28.7 (25.0-34.0) pg MCHC 34.2 (32.0-36.0) g/dL RDW Std Deviation 35.9 L (36.4-46.3) fL RDW Coeff of Renetta 11.9 (11.5-14.5) % Plt Count 327 (130-400) K/uL MPV 9.1 L (9.4-12.4) fL Sodium 135 L (136-145) mmol/L Potassium 3.7 (3.5-5.1) mmol/L Chloride 100 (98-107) mmol/L Carbon Dioxide 25 (21-32) mmol/L Anion Gap 10 (3-11) BUN 10 (6-23) mg/dl Creatinine 0.80 (0.6-1.4) mg/dl Est Cr Clr Drug Dosing 121.3 ml/min eGFR 122.10 BUN/Creatinine Ratio 12.5 (10-20) Glucose 78 (70-99(Fasting)) mg/dl Calcium 8.6 (8.6-10.3) mg/dl Diagnostic Findings KUB 03/13/2025 HISTORY: f/u SBFT, progression of contrast COMPARISON STUDY: 03/12/2025 FINDINGS: Nasogastric tube tip is in the proximal stomach with the sidehole near the GE junction. Contrast has progressed to the colon and the rectum. There is residual contrast in the small bowel with multiple dilated small bowel loops measuring up to 5 cm, mildly improved. IMPRESSION: 1. Contrast has progressed to the rectum. 2. Persistent small bowel distention, mildly improved FL small bowel follow through 03/12/2025 CLINICAL HISTORY: eval SBO, POD #5 lap appy outside hospital. TECHNIQUE: Oral barium was administered to the patient and serial radiographs of the abdomen were performed. COMPARISON STUDY: 03/09/2025 CT and x-ray of 03/10/2025 FINDINGS: Nasogastric tube tip is in the proximal stomach with the sidehole just beyond the GE junction on the spa supervisor view. There is small bowel distention measuring up to 5 cm on the spa supervisor view. No colonic distention seen. Contrast was given through the nasogastric tube. There is persistent small bowel distention measuring up to 5 cm on the 3 hour film. Contrast has progressed to the region of the distal jejunum, not significantly progressed since the 60 minute film. IMPRESSION: 1. Findings consistent with small bowel obstruction. 2. Recommend KUB in the morning to see if the contrast progresses. I personally reviewed images from both imaging studies above and concur with above findings.
--- NOTE | 2025-03-13 15:33 | Hospitalist Progress Note ---
Date of Service March 13, 2025 Assessment & Plan (1) Small bowel obstruction, partial: Plan This is a 29 y/o male with no significant medical history who presented to the ED overnight with increased abdominal pain, N/V post appendectomy on 03/06. Work- up in the ED showed leukocytosis with WBCs 15.08, normal H&H of 15.8/46.9, sodium 134, creatinine 1.05, lactate 1.9, procalcitonin 0.24. D-dimer was elevated at 6210 so pt underwent CTA chest that was negative for PE but did note mild b/l pleural effusions w/ basal subsegmental collapse of both LL. CT abd/pel (personally reviewed) showed multiple dilated SB loops suggestive of SBO (max diameter 3.2 cm) with moderately thickened and inflamed ileal loops in RLQ up to IC junction, moderate adjacent fat stranding and interbowle adhesion present; no adenopathy noted. Pt was evaluated by surgery in the ED who recommended cons ervative management, admission to medical service so we have been consulted for admission. Partial SBO-secondary to adhesions Recent Perforated Appendix on 03/06/2025 --CT ABD:Evidence of multiple dilated small bowel loops (suggestive of small bowel obstruction) is noted in the mid and lower quadrants of the abdomen (maximum diameter measures approximately 3.2 cm), with moderately thickened and inflamed ileal loops are noted in the right lower quadrant up to the ileocecal junction. Moderate adjacent fat stranding and interbowel adhesion are present. Possibility of inflammatory etiology/stricture. Few air foci seen in left preperitoneal space near deep inguinal ring and in right inguinal region subcutaneous space. Could be post op. Advised clinical correlation and follow up to rule out bowel perforation. -- Small bowel follow-through:Findings consistent with small bowel obstruction. -- Blood cultures negative to date IV fluids, pain control as needed Replace electrolytes as needed Encouraged to ambulate Empirically on IV Zosyn--discontinued Surgery following NG tube clamped today, if no significant residual, will defer diet to surgery Elevated D dimer Likely due to recent surgery Saturating well on room air Venous doppler:No DVT bilateral lower extremity veins. DVT Px: Heparin SQ CODE STATUS Full code Admission and Anticipated Discharge Date Admission Date: March 09, 2025 Subjective Patient is seen and examined at bedside States feeling better today Less abdominal pain Had a small loose bowel movements overnight +Flatus Denies any nausea, vomiting, chest pain, dyspnea NG tube clamped today Review of Systems Review of Systems: All systems reviewed & are unremarkable except as noted in Subjective Physical Exam Physical Exam: Physical Exam: Vitals signs as noted above General Appearance: Thin, frail, no apparent distress Head: normocephalic, Atraumatic Eyes: normal inspection, EOMI Neck: supple, Trachea midline Respiratory/Chest: Normal breath sounds, CTA, No accessory muscle use Cardiovascular: S1, S2, No murmur Abdomen/GI: Soft, distended, non tender, decreased bowel sounds,+ laparoscopic surgical scars Extremities/Musculoskeletal:normal inspection, no edema Neurologic/Psych:AAOX3, grossly no focal neurological deficits Skin: normal color, warm Results & Data Results & Data Vital Signs (Past 12 Hours) Vital Signs Temp Pulse Resp BP Pulse Ox O2 Del Method 03/13/25 07:02 36.6 C 71 16 124/73 98 Room Air Laboratory Results Short CBC 03/13/25 Range/Units 07:19 WBC 8.03 (4.8-10.8) K/ul Hgb 12.6 L (14.0-18.0) g/dl Hct 36.8 L (42.0-52.0) % Plt Count 327 (130-400) K/uL BMP 03/13/25 07:19 Sodium 135 L Potassium 3.7 Chloride 100 Carbon Dioxide 25 BUN 10 Creatinine 0.80 Glucose 78 Calcium 8.6
--- NOTE | 2025-03-14 09:51 | Surgery Progress Note ---
Date of Service March 14, 2025 Assessment & Plan (1) S/P laparoscopic appendectomy: Plan: Lap appy at an outside institution (2) Small bowel obstruction, partial: Plan: SBO vs ileus Clinically resolving. Pt remains afebrile, HD stable, no leukocytosis. Tolerating clear liquids x2 meals so far. Pt currently has regained bowel function, will go slow. Continue to ambulate Pt is on Heparin 5000 SC, q8 for DVT ppx Will advance continue clear liquids for lunch. If ok, may advance to full liquids for dinner and D/C NGT Surgery will continue to follow Admission and Anticipated Discharge Date Admission Date: March 09, 2025 Subjective I have seen and examined this patient this am. States he feels much better today, has no complaints. Denies nausea and is tolerating clears since dinner yesterday. States he is having liquid BMs at which times he is also passing flatus Physical Exam Constitutional: average body habitus; not ill appearing, not in distress and not diaphoretic Respiratory: normal respiratory effort; no respiratory distress, no labored breathing and does not use accessory muscles Gastrointestinal (Abdomen): NGT in place, clamped Abdomen is soft, very minimal distention non TTP Results & Data Vital Signs (Past 12 Hours) Vital Signs Temp Pulse Resp BP Pulse Ox O2 Del Method 03/14/25 07:41 36.7 C 72 18 122/81 97 Room Air 03/14/25 00:05 36.6 C 77 18 103/65 97 Room Air PG Care Time/CCT Total # of Minutes Spent Total Time Spent with Patient: Total time spent is greater than 50% in coordination of care (as documented) at patient's floor/unit and/or counseling patient: Coding Level of Care Code 71468 SUB INP/OBS CARE 07/05MIN Diagnoses S/P laparoscopic appendectomy Z90.49 Small bowel obstruction, partial K56.600
--- NOTE | 2025-03-14 12:44 | Hospitalist Progress Note ---
Date of Service March 14, 2025 Assessment & Plan (1) Small bowel obstruction, partial: Plan This is a 29 y/o male with no significant medical history who presented to the ED overnight with increased abdominal pain, N/V post appendectomy on 03/06. Work- up in the ED showed leukocytosis with WBCs 15.08, normal H&H of 15.8/46.9, sodium 134, creatinine 1.05, lactate 1.9, procalcitonin 0.24. D-dimer was elevated at 6210 so pt underwent CTA chest that was negative for PE but did note mild b/l pleural effusions w/ basal subsegmental collapse of both LL. CT abd/pel (personally reviewed) showed multiple dilated SB loops suggestive of SBO (max diameter 3.2 cm) with moderately thickened and inflamed ileal loops in RLQ up to IC junction, moderate adjacent fat stranding and interbowle adhesion present; no adenopathy noted. Pt was evaluated by surgery in the ED who recommended cons ervative management, admission to medical service so we have been consulted for admission. Partial SBO-secondary to adhesions Recent Perforated Appendix on 03/06/2025 --CT ABD:Evidence of multiple dilated small bowel loops (suggestive of small bowel obstruction) is noted in the mid and lower quadrants of the abdomen (maximum diameter measures approximately 3.2 cm), with moderately thickened and inflamed ileal loops are noted in the right lower quadrant up to the ileocecal junction. Moderate adjacent fat stranding and interbowel adhesion are present. Possibility of inflammatory etiology/stricture. Few air foci seen in left preperitoneal space near deep inguinal ring and in right inguinal region subcutaneous space. Could be post op. Advised clinical correlation and follow up to rule out bowel perforation. -- Small bowel follow-through:Findings consistent with small bowel obstruction. -- Blood cultures negative IV fluids, pain control as needed Minimize narcotics as able Replace electrolytes as needed Encouraged to ambulate Empirically on IV Zosyn--discontinued Surgery following Advance diet as tolerated per surgery Slowly improving Elevated D dimer Likely due to recent surgery Saturating well on room air Venous doppler:No DVT bilateral lower extremity veins. DVT Px: Heparin SQ CODE STATUS Full code Admission and Anticipated Discharge Date Admission Date: March 09, 2025 Subjective Patient is seen and examined at bedside Only has minimal abdominal discomfort Continues to have bowel movements, flatus Tolerating liquid diet No new complaints Denies any nausea, vomiting, chest pain, dyspnea Review of Systems Review of Systems: All systems reviewed & are unremarkable except as noted in Subjective Physical Exam Physical Exam: Physical Exam: Vitals signs as noted above General Appearance: Thin, frail, no apparent distress Head: normocephalic, Atraumatic Eyes: normal inspection, EOMI Neck: supple, Trachea midline Respiratory/Chest: Normal breath sounds, CTA, No accessory muscle use Cardiovascular: S1, S2, No murmur Abdomen/GI: Soft, mildly distended, non tender, + bowel sounds,+ laparoscopic surgical scars Extremities/Musculoskeletal:normal inspection, no edema Neurologic/Psych:AAOX3, grossly no focal neurological deficits Skin: normal color, warm Results & Data Results & Data Vital Signs (Past 12 Hours) Vital Signs Temp Pulse Resp BP Pulse Ox O2 Del Method 03/14/25 07:41 36.7 C 72 18 122/81 97 Room Air
--- NOTE | 2025-03-14 13:13 | Surgery Progress Note ---
<Statement entered by Jessica Kim DO - 03/15/25 11:30> I saw and examined this patient with the surgical PA. I agree with this plan. Date of Service March 14, 2025 Assessment & Plan (1) S/P laparoscopic appendectomy: Plan: Lap appy at an outside institution (2) Small bowel obstruction, partial: Plan: SBO vs ileus Clinically resolving. Pt remains afebrile, HD stable, no leukocytosis. Tolerating clear liquids x 3 meals. Ok to remove NG tube and will advance patient to full liquids for dinner. Admission and Anticipated Discharge Date Admission Date: March 09, 2025 Subjective Patient seen one hour after having clear liquids for lunch- he is doing well with no abdominal pain or nausea. Feels ready to advance diet and have NG tube removed. Physical Exam Constitutional: average body habitus; not ill appearing, not in distress and not diaphoretic Respiratory: normal respiratory effort; no respiratory distress, no labored breathing and does not use accessory muscles Gastrointestinal (Abdomen): NGT in place Abdomen is soft, very minimal distention non TTP Results & Data Vital Signs (Past 12 Hours) Vital Signs Temp Pulse Resp BP Pulse Ox O2 Del Method 03/14/25 07:41 36.7 C 72 18 122/81 97 Room Air PG Care Time/CCT Total # of Minutes Spent Total Time Spent with Patient: Total time spent is greater than 50% in coordination of care (as documented) at patient's floor/unit and/or counseling patient: Coding Level of Care Code 20234 SUB INP/OBS CARE 07/05MIN Diagnoses S/P laparoscopic appendectomy Z90.49 Small bowel obstruction, partial K56.600
[2025-03-15 07:37] LABS: Hematocrit (blood only) 40.7 % (42.0-52.0); Hemoglobin 13.7 g/dl (14.0-18.0); Mean Corpuscular Hemoglobin 28.7 pg (25.0-34.0); Mean Corpuscular Volume 85.3 fL (80.0-100.0); Platelet Count 349 K/uL (130-400); RDW Standard Deviation 36.9 fL (36.4-46.3); Red Blood Count 4.77 M/uL (4.70-6.10); White Blood Count 7.87 K/ul (4.8-10.8)
[2025-03-15 07:52] LABS: Anion Gap 6.0 (3-11); Blood Urea Nitrogen 6.0 mg/dl (6-23); Calcium 9.4 mg/dl (8.6-10.3); Carbon Dioxide 30.0 mmol/L (21-32); Chloride 105.0 mmol/L (98-107); Creatinine Clr Calc Pharmacy 119.8 ml/min; Glucose 105.0 mg/dl (70-99(Fasting)); Potassium 3.9 mmol/L (3.5-5.1); Sodium 141.0 mmol/L (136-145)
--- NOTE | 2025-03-15 09:57 | CT Scan Report ---
EXAM: CT Maxillofacial Without Intravenous Contrast INDICATION: Assessed for nasal fracture post nasogastric tube placement. TECHNIQUE: Axial computed tomography images of the face without intravenous contrast. Sagittal and coronal reformatted images were created and reviewed. This CT exam was performed using one or more of the following dose reduction techniques: automated exposure control, adjustment of the mA and/or kV according to patient size, and/or use of iterative reconstruction technique. COMPARISON: No relevant prior studies available. FINDINGS: Bones/joints: No acute changes. Soft tissues: No significant abnormality noted. Orbits: No abnormality noted. Sinuses: No layering fluid in the visualized portions of the paranasal sinuses. Nasal cavity/septum: The nasal septum is mildly deviated to the left. IMPRESSION: 1. No nasal bone fracture. 2. Mild nasal septal deviation. ACT 112: N/A Electronically signed by Debbie Burgess 03-15-2025 09:57 AM
[2025-03-15] MEDS ORDERED: SODIUM CHLORIDE 0.65% NA SOLN 45 ML (OCEAN) PRN (10:13)
--- NOTE | 2025-03-15 10:44 | Surgery Progress Note ---
<Statement entered by Jessica Kim DO - 03/15/25 11:29> I have seen and examined this patient with the surgical PA. I agree with this plan Date of Service March 15, 2025 Assessment & Plan (1) S/P laparoscopic appendectomy: Plan: Lap appy at an outside institution here w/ ileus NGT removed yesterday. he is passing gas and BMs CT face obtained, mild nasal deviation noted, no fracture some abdominal distention overnight, he feels improved this AM. mild pain. tolerating clears no n/v Will advance to fulls, if that goes well consider low fiber for dinner encourage OOB/ambulation (2) Small bowel obstruction, partial: Admission and Anticipated Discharge Date Admission Date: March 09, 2025 Subjective Patient doing okay. He reports + gas and BM this AM. Tolerating clears. Had some abdominal distention over night. Some pain but tolerable. He went down for face CT this AM as he felt a pop in his nose when ngt was inserted and feels like he has some deviation. Physical Exam Physical Exam: awake/alert, no distress Gastrointestinal (Abdomen): Inspection/Auscultation: + abdomen distended (mild) Percussion/Palpation: + abdomen tender (mild discomfort to palpation ) and abdomen soft Results & Data Vital Signs (Past 12 Hours) Vital Signs Temp Pulse Resp BP Pulse Ox O2 Del Method 03/15/25 07:17 98.2 F 86 18 115/77 100 Room Air 03/14/25 23:17 98.2 F 77 18 111/70 97 Room Air PG Care Time/CCT Total # of Minutes Spent Total Time Spent with Patient: Total time spent is greater than 50% in coordination of care (as documented) at patient's floor/unit and/or counseling patient: Coding Level of Care Code 98630 SUB INP/OBS CARE 07/05MIN Diagnoses S/P laparoscopic appendectomy Z90.49 Small bowel obstruction, partial K56.600
--- NOTE | 2025-03-15 11:45 | Hospitalist Progress Note ---
Date of Service March 15, 2025 Assessment & Plan (1) Small bowel obstruction, partial: Plan This is a 29 y/o male with no significant medical history who presented to the ED overnight with increased abdominal pain, N/V post appendectomy on 03/06. Work- up in the ED showed leukocytosis with WBCs 15.08, normal H&H of 15.8/46.9, sodium 134, creatinine 1.05, lactate 1.9, procalcitonin 0.24. D-dimer was elevated at 6210 so pt underwent CTA chest that was negative for PE but did note mild b/l pleural effusions w/ basal subsegmental collapse of both LL. CT abd/pel (personally reviewed) showed multiple dilated SB loops suggestive of SBO (max diameter 3.2 cm) with moderately thickened and inflamed ileal loops in RLQ up to IC junction, moderate adjacent fat stranding and interbowle adhesion present; no adenopathy noted. Pt was evaluated by surgery in the ED who recommended cons ervative management, admission to medical service so we have been consulted for admission. Partial SBO-secondary to adhesions Recent Perforated Appendix on 03/06/2025 --CT ABD:Evidence of multiple dilated small bowel loops (suggestive of small bowel obstruction) is noted in the mid and lower quadrants of the abdomen (maximum diameter measures approximately 3.2 cm), with moderately thickened and inflamed ileal loops are noted in the right lower quadrant up to the ileocecal junction. Moderate adjacent fat stranding and interbowel adhesion are present. Possibility of inflammatory etiology/stricture. Few air foci seen in left preperitoneal space near deep inguinal ring and in right inguinal region subcutaneous space. Could be post op. Advised clinical correlation and follow up to rule out bowel perforation. -- Small bowel follow-through:Findings consistent with small bowel obstruction. -- Blood cultures negative IV fluids, pain control as needed Minimize narcotics as able Replace electrolytes as needed Encouraged to ambulate Empirically on IV Zosyn--discontinued Appreciate surgery help NG tube discontinued Advance to full liquid diet today Elevated D dimer Likely due to recent surgery Saturating well on room air Venous doppler:No DVT bilateral lower extremity veins. DVT Px: Heparin SQ CODE STATUS Full code Admission and Anticipated Discharge Date Admission Date: March 09, 2025 Subjective Patient is seen and examined at bedside Continues to have bowel movements, flatus Tolerating liquid diet Still has some abdominal discomfort and distention Denies any chest pain, nausea, vomiting Discussed with surgery today Review of Systems Review of Systems: All systems reviewed & are unremarkable except as noted in Subjective Physical Exam Physical Exam: Physical Exam: Vitals signs as noted above General Appearance: Thin, frail, no apparent distress Head: normocephalic, Atraumatic Eyes: normal inspection, EOMI Neck: supple, Trachea midline Respiratory/Chest: Normal breath sounds, CTA, No accessory muscle use Cardiovascular: S1, S2, No murmur Abdomen/GI: Soft, mildly distended, non tender, + bowel sounds,+ laparoscopic surgical scars Extremities/Musculoskeletal:normal inspection, no edema Neurologic/Psych:AAOX3, grossly no focal neurological deficits Skin: normal color, warm Results & Data Results & Data Vital Signs (Past 12 Hours) Vital Signs Temp Pulse Resp BP Pulse Ox O2 Del Method 03/15/25 07:17 36.8 C 86 18 115/77 100 Room Air Laboratory Results Short CBC 03/15/25 Range/Units 07:13 WBC 7.87 (4.8-10.8) K/ul Hgb 13.7 L (14.0-18.0) g/dl Hct 40.7 L (42.0-52.0) % Plt Count 349 (130-400) K/uL BMP 03/15/25 07:13 Sodium 141 Potassium 3.9 Chloride 105 Carbon Dioxide 30 BUN 6 Creatinine 0.81 Glucose 105 H Calcium 9.4
[2025-03-16 08:29] VITALS: BP 115/71; PULSE 78; RESP 18; TEMP 99; O2SAT 97
--- NOTE | 2025-03-16 10:31 | Surgery Progress Note ---
Date of Service March 16, 2025 Assessment & Plan (1) S/P laparoscopic appendectomy: (2) Small bowel obstruction, partial: Plan 29M s/p lap appy at an outside institution presented on POD 3 with partial SBO vs ileus. This has resolved, started on a low fiber diet this am. He has remained afebrile and is without leukocytosis. May be discharged after lunch if lunch goes ok Follow up with his surgeon on his scheduled post operative appt date which he states is in one week. He should continue with his originally given post op orders as described to him by his surgeon. Surgery will sign off at this time. Please call with questions or concerns. Admission and Anticipated Discharge Date Admission Date: March 09, 2025 Subjective I have seen and examined this pt this am. He denies N/V, is tolerating a solid diet as of breakfast this am. Continues to pass gas, states he feels fine Physical Exam Constitutional: average body habitus; not ill appearing, not in distress and not diaphoretic Respiratory: normal respiratory effort; no respiratory distress, no labored breathing and does not use accessory muscles Gastrointestinal (Abdomen): Inspection/Auscultation: abdomen not distended Results & Data Vital Signs (Past 12 Hours) Vital Signs Temp Pulse Resp BP Pulse Ox O2 Del Method 03/16/25 08:27 37.2 C 78 18 115/71 97 Room Air 03/15/25 23:24 36.8 C 62 16 110/77 98 Room Air PG Care Time/CCT Total # of Minutes Spent Total Time Spent with Patient: Total time spent is greater than 50% in coordination of care (as documented) at patient's floor/unit and/or counseling patient: Coding Level of Care Code 56222 SUB INP/OBS CARE 07/05MIN Diagnoses S/P laparoscopic appendectomy Z90.49 Small bowel obstruction, partial K56.600
--- NOTE | 2025-03-16 11:22 | Hospitalist Progress Note ---
Date of Service March 16, 2025 Assessment & Plan (1) Small bowel obstruction, partial: Plan This is a 29 y/o male with no significant medical history who presented to the ED overnight with increased abdominal pain, N/V post appendectomy on 03/06. Work- up in the ED showed leukocytosis with WBCs 15.08, normal H&H of 15.8/46.9, sodium 134, creatinine 1.05, lactate 1.9, procalcitonin 0.24. D-dimer was elevated at 6210 so pt underwent CTA chest that was negative for PE but did note mild b/l pleural effusions w/ basal subsegmental collapse of both LL. CT abd/pel (personally reviewed) showed multiple dilated SB loops suggestive of SBO (max diameter 3.2 cm) with moderately thickened and inflamed ileal loops in RLQ up to IC junction, moderate adjacent fat stranding and interbowle adhesion present; no adenopathy noted. Pt was evaluated by surgery in the ED who recommended cons ervative management, admission to medical service so we have been consulted for admission. Partial SBO-secondary to adhesions Recent Perforated Appendix on 03/06/2025 --CT ABD:Evidence of multiple dilated small bowel loops (suggestive of small bowel obstruction) is noted in the mid and lower quadrants of the abdomen (maximum diameter measures approximately 3.2 cm), with moderately thickened and inflamed ileal loops are noted in the right lower quadrant up to the ileocecal junction. Moderate adjacent fat stranding and interbowel adhesion are present. Possibility of inflammatory etiology/stricture. Few air foci seen in left preperitoneal space near deep inguinal ring and in right inguinal region subcutaneous space. Could be post op. Advised clinical correlation and follow up to rule out bowel perforation. -- Small bowel follow-through:Findings consistent with small bowel obstruction. -- Blood cultures negative IV fluids, pain control as needed Minimize narcotics as able Replace electrolytes as needed Encouraged to ambulate Empirically on IV Zosyn--discontinued Appreciate surgery help NG tube discontinued Advance to low fiber diet Needs follow-up with surgery on discharge Plan to be discharged home today if tolerates diet Elevated D dimer Likely due to recent surgery Saturating well on room air Venous doppler:No DVT bilateral lower extremity veins. DVT Px: Heparin SQ CODE STATUS Full code Disposition Home Admission and Anticipated Discharge Date Admission Date: March 09, 2025 Subjective Patient is seen and examined at bedside States feeling a lot better today Tolerating diet with no issues Continues to have bowel movement, passing gas Denies any nausea, vomiting, abdominal pain, chest pain, dyspnea Plan to be discharged home today if tolerates low fiber diet Review of Systems Review of Systems: All systems reviewed & are unremarkable except as noted in Subjective Physical Exam Physical Exam: Physical Exam: Vitals signs as noted above General Appearance: Thin, frail, no apparent distress Head: normocephalic, Atraumatic Eyes: normal inspection, EOMI Neck: supple, Trachea midline Respiratory/Chest: Normal breath sounds, CTA, No accessory muscle use Cardiovascular: S1, S2, No murmur Abdomen/GI: Soft, mildly distended, non tender, + bowel sounds,+ laparoscopic surgical scars Extremities/Musculoskeletal:normal inspection, no edema Neurologic/Psych:AAOX3, grossly no focal neurological deficits Skin: normal color, warm Results & Data Results & Data Vital Signs (Past 12 Hours) Vital Signs Temp Pulse Resp BP Pulse Ox O2 Del Method 03/16/25 08:27 37.2 C 78 18 115/71 97 Room Air 03/15/25 23:24 36.8 C 62 16 110/77 98 Room Air
--- NOTE | 2025-03-16 11:27 | Discharge Summary ---
Date of Service March 16, 2025 Admission HPI Per Admitting Provider This is a 29 y/o male with no significant medical history who presented to the ED overnight with increased abdominal pain, N/V post appendectomy on 03/06. Pt's girlfriend at the bedside assists with the history as pt is very uncomfortable and deferred to her answers. About a week ago, they went out to eat, after which pt developed some abdominal bloating and discomfort. This lasted a few days before he acutely developed significant RLQ pain, so pt's girlfriend brought him to the ED at [facility] for evaluation. He was found to have appendicitis and was taken for appendectomy. Reportedly, pt's appendix was 12 mm diameter and was perforated with significant associated inflammation. His LN were also noted to be significantly enlarged, more than anticipated per their report. Pt was kept overnight before being discharged two days with a course of Augmentin for five days. He still had abdominal pain but was told that this is to be expected post-operatively. Yesterday, he had started to feel slightly better with less discomfort. He attempted to eat small amount of dinner yesterday - broccoli, ham steak, mashed potatoes. Around 11 pm, he developed worsening abdominal pain, bloating, nausea with one episode of bilious vomiting so his girlfriend ultimately brought him to the ED. Pt had NGT placed in the ED, which has helped with nausea. Denies fevers, chills, sweats. He had one small BM this weekend. Admission Exam Per Admitting Provider General: awake, appears uncomfortable HEENT: NGT in place, slightly dry mucus membranes Neck: supple, trachea midline Heart: RRR, no M/G/R Lungs: CTA but diminished at bases bilaterally Abdomen: softly distended, tympanic to percussion, +hypoactive BS, +mild diffuse tenderness, moderate RLQ tenderness Skin: warm, dry, no jaundice Neurologic: Ox3, moving all extremities Extremities: distal pulses intact and equal, no pedal edema Principal Diagnosis Small bowel obstruction Discharge Data Allergies Allergy/AdvReac Type Severity Reaction Status Date / Time No Known Allergies Allergy Unverified 03/09/25 07:32 Consultations 03/09/25 06:35 Consult General Surgery Stat 03/09/25 08:18 ED Decision to Admit Stat Procedures Performed Laboratory Results WBC 7.87 K/ul (4.8-10.8) 03/15/25 07:13 RBC 4.77 M/uL (4.70-6.10) 03/15/25 07:13 Hgb 13.7 g/dl (14.0-18.0) L 03/15/25 07:13 Hct 40.7 % (42.0-52.0) L 03/15/25 07:13 MCV 85.3 fL (80.0-100.0) 03/15/25 07:13 MCH 28.7 pg (25.0-34.0) 03/15/25 07:13 MCHC 33.7 g/dL (32.0-36.0) 03/15/25 07:13 RDW Std Deviation 36.9 fL (36.4-46.3) 03/15/25 07:13 RDW Coeff of Renetta 12.4 % (11.5-14.5) 03/15/25 07:13 Plt Count 349 K/uL (130-400) 03/15/25 07:13 MPV 9.2 fL (9.4-12.4) L 03/15/25 07:13 Immature Gran % (Auto) 0.4 % 03/11/25 07:01 Neut % (Auto) 66.2 % 03/11/25 07:01 Lymph % (Auto) 19.3 % 03/11/25 07:01 Moore % (Auto) 11.1 % 03/11/25 07:01 Eos % (Auto) 2.6 % 03/11/25 07:01 Baso % (Auto) 0.4 % 03/11/25 07:01 Neut # (Auto) 5.41 K/uL (1.40-6.50) 03/11/25 07:01 Lymph # (Auto) 1.58 K/uL (1.20-3.40) 03/11/25 07:01 Moore # (Auto) 0.91 K/uL (0.11-0.59) H 03/11/25 07:01 Eos # (Auto) 0.21 K/uL (0.00-0.50) 03/11/25 07:01 Baso # (Auto) 0.03 K/uL (0.00-0.20) 03/11/25 07:01 Immature Gran # (Auto) 0.03 K/uL (0.01-0.20) 03/11/25 07:01 D-Dimer 6210 ug/L FEU (0-500) H* 03/09/25 04:05 Sodium 141 mmol/L (136-145) 03/15/25 07:13 Potassium 3.9 mmol/L (3.5-5.1) 03/15/25 07:13 Chloride 105 mmol/L (98-107) 03/15/25 07:13 Carbon Dioxide 30 mmol/L (21-32) 03/15/25 07:13 Anion Gap 6 (3-11) 03/15/25 07:13 BUN 6 mg/dl (6-23) 03/15/25 07:13 Creatinine 0.81 mg/dl (0.6-1.4) 03/15/25 07:13 Est Cr Clr Drug Dosing 119.8 ml/min 03/15/25 07:13 eGFR 121.64 03/15/25 07:13 BUN/Creatinine Ratio 7.4 (10-20) L 03/15/25 07:13 Glucose 105 mg/dl (70-99(Fasting)) H 03/15/25 07:13 Lactate 1.9 mmol/L (0.4-2.0) 03/09/25 04:05 Calcium 9.4 mg/dl (8.6-10.3) 03/15/25 07:13 Magnesium 1.9 mg/dl (1.7-2.4) 03/12/25 06:58 Total Bilirubin 1.0 mg/dl (0.2-1.0) 03/09/25 04:05 Direct Bilirubin 0.1 mg/dl (0-0.2) 03/09/25 05:01 AST 11 U/L (13-39) L 03/09/25 05:01 ALT 16 U/L (7-52) 03/09/25 04:05 Alkaline Phosphatase 55 U/L (34-104) 03/09/25 04:05 Troponin I High Sens 5.2 pg/ml (0-20) 03/09/25 04:05 Total Protein 8.3 gm/dl (6.0-8.3) 03/09/25 04:05 Albumin 4.6 gm/dl (3.4-5.0) 03/09/25 04:05 Procalcitonin 0.24 ng/ml (0-0.5) 03/09/25 04:05 Urine Color Yellow 03/09/25 23:00 Urine Appearance Clear (Clear) 03/09/25 23:00 Urine pH 5.5 (4.5-7.5) 03/09/25 23:00 Ur Specific Sherman > 1.045 (1.000-1.030) H 03/09/25 23:00 Urine Protein 1+ (Negative) H 03/09/25 23:00 Urine Glucose (UA) Negative (Negative) 03/09/25 23:00 Urine Ketones 2+ (Negative) H 03/09/25 23:00 Urine Blood Negative (Negative) 03/09/25 23:00 Urine Nitrite Negative (Negative) 03/09/25 23:00 Urine Bilirubin Negative (Negative) 03/09/25 23:00 Urine Urobilinogen Negative (Negative) 03/09/25 23:00 Ur Leukocyte Esterase Negative (Negative) 03/09/25 23:00 Urine WBC (Auto) 0-5 /hpf (0-5) 03/09/25 23:00 Urine RBC (Auto) 0-2 /hpf (0-2) 03/09/25 23:00 U Hyaline Cast (Auto) 0-2 /lpf (0-2) 03/09/25 23:00 U Epithel Cells (Auto) 0-2 /hpf (0-2) 03/09/25 23:00 Urine Bacteria (Auto) None Seen (None Seen) 03/09/25 23:00 Urine Comment 03/09/25 23:00 Impressions Chest X-Ray 03/09/25 03:58 EXAM: XR chest 1V portable CLINICAL HISTORY: Sepsis TECHNIQUE: An X-ray image of the chest was obtained in the AP projection. COMPARISON: No prior studies are available for comparison. FINDINGS: Pulmonary Parenchyma: The lungs are clear bilaterally. There is no evidence of consolidation, collapse, or focal opacities. No pulmonary nodules are identified. There is no evidence of pleural effusion or pleural thickening. Heart and Mediastinum: The heart size and shape are normal. There is no mediastinal widening or masses. No hilar or mediastinal lymphadenopathy is present. Bony Thorax: The bony thorax appears intact without fractures or deformities. Soft Tissues: The soft tissues overlying the chest wall are unremarkable. IMPRESSION: Normal chest X-ray. No acute cardiopulmonary abnormalities are identified. Electronically signed by Danis Cabrera 03-09-2025 05:19 AM Abdomen/Pelvis CT 03/09/25 04:21 EXAM: CT abd pelvis IV con only CLINICAL HISTORY: eval for sbo TECHNIQUE: Contiguous axial images were obtained from the level of the diaphragm to the pubic symphysis with intravenous contrast. Coronal and sagittal reconstructions were likewise performed and indicated to increase the sensitivity for detecting clinically relevant pathology. If IV contrast material had not been administered, the likelihood of detecting abnormalities relevant to the patient's condition would have been substantially decreased. The CT scan was performed according to ALARA (as low as reasonably achievable). COMPARISON: None. FINDINGS: The visualized lower chest shows mild bilateral pleural effusion. The liver is normal in size and attenuation. No focal liver lesions are seen. There is no intra- or extrahepatic biliary ductal dilatation. Hepatic vasculature is patent. The gallbladder is present. The spleen, pancreas, and adrenal glands are unremarkable. The kidneys are normal in size and attenuation. There is no hydronephrosis or perinephric fat stranding. No renal calculi or renal masses are identified. The ureters are normal in caliber and no ureteral calculi are seen. The bladder is normal in contour. Pelvic viscera are unremarkable. Evidence of multiple dilated small bowel loops (suggestive of small bowel obstruction) is noted in the mid and lower quadrants of the abdomen (maximum diameter measures approximately 3.2 cm), with moderately thickened and inflamed Ileal loops noted in the right lower quadrant up to the ileocecal junction. Moderate adjacent fat stranding and interbowel adhesion are present. No imaging evidence of appendicitis. Minimal ascites seen. Few air foci seen in left preperitoneal space near deep inguinal ring and in right inguinal region subcutaneous space. Abdominal and pelvic vasculature is patent. No adenopathy or fluid collections are seen. No aggressive appearing osseous lesions are identified. IMPRESSION: 1. Evidence of multiple dilated small bowel loops (suggestive of small bowel obstruction) is noted in the mid and lower quadrants of the abdomen (maximum diameter measures approximately 3.2 cm), with moderately thickened and inflamed ileal loops are noted in the right lower quadrant up to the ileocecal junction. Moderate adjacent fat stranding and interbowel adhesion are present. Possibility of inflammatory etiology/stricture. 2. Few air foci seen in left preperitoneal space near deep inguinal ring and in right inguinal region subcutaneous space. Could be post op. Advised clinical correlation and follow up to rule out bowel perforation. Electronically signed by Danis Cabrera 03-09-2025 06:21 AM Chest CTA 03/09/25 05:00 EXAM: CT angio chest PE protocol CLINICAL HISTORY: PE TECHNIQUE: Contiguous axial images were obtained from the base of the neck through the upper abdomen following intravenous administration of iodinated contrast material. Angiographic images were processed, and 3D MIP images were acquired for interpretation. If IV contrast material had not been administered, the likelihood of detecting abnormalities relevant to the patient's condition would have been substantially decreased. Coronal and sagittal 3D MIPs were likewise performed and indicated to increase the sensitivity of detecting diffuse clinically relevant pathology. The CT scan was performed according to ALARA (as low as reasonably achievable). COMPARISON: None. FINDINGS: Mild bilateral pleural effusions with basal subsegmental collapse of both lower lobes are seen. Adequate contrast bolus without evidence of pulmonary embolism. The central airways are patent. The lungs are clear. The heart, aorta, and pulmonary arteries are of normal size and configuration. There are no appreciable coronary artery or aortic atherosclerotic calcifications. No pericardial effusion is identified. The thyroid is unremarkable. No mediastinal, hilar, or axillary lymphadenopathy is noted. No suspicious lytic or sclerotic osseous lesions are identified. IMPRESSION: 1. No evidence of pulmonary embolism. Mild bilateral pleural effusions with basal subsegmental collapse of both lower lobes are seen. Electronically signed by Danis Cabrera 03-09-2025 06:15 AM Venous Doppler Study 03/11/25 16:45 Exam(s): US VENOUS BILATERAL LOWER EXTREMITIES EXAM: US Duplex Bilateral Lower Extremities Veins CLINICAL HISTORY: Reason for exam: elevated d dimer. TECHNIQUE: Real-time duplex ultrasound scan of the bilateral lower extremity veins integrating B-mode two-dimensional vascular structure, Doppler spectral analysis, color flow Doppler imaging and compression. COMPARISON: None. FINDINGS: Veins: No DVT in the visualized bilateral lower extremity veins, including the common femoral, superficial femoral, proximal deep femoral and popliteal veins. The veins demonstrate normal color flow, are normally compressible, with normal phasic flow and/or augmentation response. Soft tissues: No popliteal cyst. IMPRESSION: 1. No DVT bilateral lower extremity veins. Electronically signed by: Margaret Steiner M.D. 03/11/25 23:24 PM Small Bowel X-Ray 03/12/25 07:00 FL small bowel follow through CLINICAL HISTORY: eval SBO, POD #5 lap [facility] outside hospital. TECHNIQUE: Oral barium was administered to the patient and serial radiographs of the abdomen were performed. COMPARISON STUDY: 03/09/2025 CT and x-ray of 03/10/2025 FINDINGS: Nasogastric tube tip is in the proximal stomach with the sidehole just beyond the GE junction on the duct installer view. There is small bowel distention measuring up to 5 cm on the duct installer view. No colonic distention seen. Contrast was given through the nasogastric tube. There is persistent small bowel distention measuring up to 5 cm on the 3 hour film. Contrast has progressed to the region of the distal jejunum, not significantly progressed since the 60 minute film. IMPRESSION: 1. Findings consistent with small bowel obstruction. 2. Recommend KUB in the morning to see if the contrast progresses. ACT 112: Negative or not required by law. The above report was generated using voice recognition software. It may contain grammatical, syntax or spelling errors. Electronically signed by: Abrahan Vincent M.D. 03/12/2025 2:48 PM KUB X-Ray 03/13/25 07:00 KUB HISTORY: f/u SBFT, progression of contrast COMPARISON STUDY: 03/12/2025 FINDINGS: Nasogastric tube tip is in the proximal stomach with the sidehole near the GE junction. Contrast has progressed to the colon and the rectum. There is residual contrast in the small bowel with multiple dilated small bowel loops measuring up to 5 cm, mildly improved. IMPRESSION: 1. Contrast has progressed to the rectum. 2. Persistent small bowel distention, mildly improved. ACT 112: Negative or not required by law. The above report was generated using voice recognition software. It may contain grammatical, syntax or spelling errors. Electronically signed by: Abrahan Vincent M.D. 03/13/2025 8:[address] 03/15/25 07:49 EXAM: CT Maxillofacial Without Intravenous Contrast INDICATION: Assessed for nasal fracture post nasogastric tube placement. TECHNIQUE: Axial computed tomography images of the face without intravenous contrast. Sagittal and coronal reformatted images were created and reviewed. This CT exam was performed using one or more of the following dose reduction techniques: automated exposure control, adjustment of the mA and/or kV according to patient size, and/or use of iterative reconstruction technique. COMPARISON: No relevant prior studies available. FINDINGS: Bones/joints: No acute changes. Soft tissues: No significant abnormality noted. Orbits: No abnormality noted. Sinuses: No layering fluid in the visualized portions of the paranasal sinuses. Nasal cavity/septum: The nasal septum is mildly deviated to the left. IMPRESSION: 1. No nasal bone fracture. 2. Mild nasal septal deviation. ACT 112: N/A Electronically signed by Debbie Burgess 03-15-2025 09:57 AM Ordered Studies 03/09/25 04:21 CT Abd and Pelvis [CT abd pelvis IV con only] Stat 03/09/25 05:00 CT angio chest PE protocol Stat 03/11/25 16:45 US venous doppler LE BI Routine 03/12/25 07:00 FL small bowel follow through Urgent 03/15/25 07:49 CT face [CT facial bones wo con] Urgent Hospital Course (1) Small bowel obstruction, partial: Plan This is a 29 y/o male with no significant medical history who presented to the ED overnight with increased abdominal pain, N/V post appendectomy on 03/06. Work- up in the ED showed leukocytosis with WBCs 15.08, normal H&H of 15.8/46.9, sodium 134, creatinine 1.05, lactate 1.9, procalcitonin 0.24. D-dimer was elevated at 6210 so pt underwent CTA chest that was negative for PE but did note mild b/l pleural effusions w/ basal subsegmental collapse of both LL. CT abd/pel (personally reviewed) showed multiple dilated SB loops suggestive of SBO (max diameter 3.2 cm) with moderately thickened and inflamed ileal loops in RLQ up to IC junction, moderate adjacent fat stranding and interbowle adhesion present; no adenopathy noted. Pt was evaluated by surgery in the ED who recommended conservative management, admission to medical service so we have been consulted for admission. Partial SBO-secondary to adhesions Recent Perforated Appendix on 03/06/2025 --CT ABD:Evidence of multiple dilated small bowel loops (suggestive of small bowel obstruction) is noted in the mid and lower quadrants of the abdomen (maximum diameter measures approximately 3.2 cm), with moderately thickened and inflamed ileal loops are noted in the right lower quadrant up to the ileocecal junction. Moderate adjacent fat stranding and interbowel adhesion are present. Possibility of inflammatory etiology/stricture. Few air foci seen in left preperitoneal space near deep inguinal ring and in right inguinal region subcutaneous space. Could be post op. Advised clinical correlation and follow up to rule out bowel perforation. -- Small bowel follow-through:Findings consistent with small bowel obstruction. -- Blood cultures negative IV fluids, pain control as needed Minimize narcotics as able Replace electrolytes as needed Encouraged to ambulate Empirically on IV Zosyn--discontinued Appreciate surgery help NG tube discontinued Advance to low fiber diet Needs follow-up with surgery on discharge Plan to be discharged home today if tolerates diet Elevated D dimer Likely due to recent surgery Saturating well on room air Venous doppler:No DVT bilateral lower extremity veins. DVT Px: Heparin SQ CODE STATUS Full code Disposition Home Total Time Total Time Spent Total Time Spent (In Minutes): 52 minutes Discharge Plan Discharge Items Patient Disposition: Home - Self-Care Reason For Visit: SOB Discharge Diagnosis: Small bowel obstruction Condition on Discharge: Serious Activity: Resume your previous activity Exercise/Sports: Gradually increase as tolerated Non-emergency contact: Primary Care Provider and Surgeon Call non-emergency contact if: you have any medication questions, your symptoms worsen, your pain is concerning for you and you have a fever Follow-up/Referrals: Jerilyn Duong PA-C [Physician Occupational Therapy Professor] - Tk Perry DO [Physician] - 03/19/25 11:00 am Diet: Low Fiber Addtl Attending Provider Instructions: -- Follow-up with your primary care physician in 1 week -- Follow-up with your surgeon Jerilyn Duong PA-C on 03/19/2024 at 11 AM as scheduled Seek immediate medical attention if your symptoms reoccur or worsen Please review medication list provided on discharge for any medication changes as instructed. Please call if you have any questions or problems. You can reach a [facility] hospitalist on duty at [facility] 24 hours a day by calling [phone] Pending Studies at Discharge: No Stand-Alone Forms: My [facility] [employer], Smoking Cessation Medications and DC Order Prescriptions: Changed ibuprofen 800 mg tablet 200 mg PO Q8H PRN (Reason: Pain) Qty: 0 0RF Discontinued amoxicillin-pot clavulanate 875-125 mg tablet 1 tab PO BID Discharge Orders: Discharge Order (Routine); Ordered 03/16/25 Ordered By: Bill Morales Admission Data Admit Date/Time: 03/09/25 08:44 Attending Provider: Bill Morales Admit Provider: Ruth Clayton I. Primary Care Provider: PCP,NO Other Providers: Jez Love Valentine I.
== END 2025-03-16 14:23 | disposition home or self-care (01) | DRG 390 ==
LOC: ED 03:41 → SUATTDRO 08:44 → EDINP 08:44 → 3W 13:18